=== PATIENT | male | born 1940 | race Caucasian/White ===

== ENCOUNTER 2020-06-30 01:23 | Inpatient (IN) | payer OTHER, SELFPAY ==
[2020-06-30] VITALS (17 sets, daily range): BP systolic 90–134; BP diastolic 61–85; PULSE 73–100; RESP 16–18; TEMP 35.7–36.5; O2SAT 93–100; BMI 16.9
--- NOTE | ~2020-06-30 | XR_ITS ---
XR chest 1V portable DATE: 07/02/2020 22:16 INDICATION: Hypoxia. Bowel obstruction, possible free air TECHNIQUE: Portable AP chest on 07/02/2020 at 2159 hours COMPARISON: 07/02/2020 AP and lateral chest at 1313 hours FINDINGS: Bilateral pulmonary infiltrates, including stable infiltrate in the right lower lung and in creased left mid and lower lung infiltrate since 07/02/2020. Cardiomegaly. Mild pulmonary vascular congestion. Cannot exclude minimal pleural effusions. No pneumothorax. Prominent gaseous distention of the hepatic flexure of the colon. Diffuse osteopenia. IMPRESSION: Stable right lower lung infiltrate and increased infiltrates in the left mid and lower marvel ng since 07/02/2020 Reviewed, dictated and finalized at location A. IMPRESSION: Stable right lower lung infiltrate and increased infiltrates in the left mid and lower lung since 07/02/2020
--- NOTE | ~2020-06-30 | XR_ITS ---
XR abdomen/kub 1V DATE: 07/02/2020 22:16 INDICATION: Possible bowel obstruction TECHNIQUE: 2 supine AP views COMPARISON: 06/30/[address] abdomen pelvis FINDINGS: There is a prominent amount of fecal material in the rectosigmoid area consistent with feca l impaction. There is gaseous distention of multiple small and large bowel segments without apparent abnormal dilatation. No visceromegaly is evident. Diffuse osteopenia. Right lower and left mid and lower lung infiltrates. IMPRESSION: Rectosigmoid fecal impaction Reviewed, dictated and finalized at [facility]. Reviewed, dictated and finalized at location A.
--- NOTE | ~2020-06-30 | CT_ITS ---
EXAMINATION: CT brain wo con EXAM DATE: 07/01/2020 10:36 INDICATION: Altered mental status. TECHNIQUE: Spiral CT of the head was performed without contrast. Axial, coronal and sagittal images were reviewed. The dose-length product (DLP) for this examination was 681.00 mGy-cm. The exposure w as tailored according to patient size, and iterative reconstruction (ASIR) was used as additional dos e reduction technique. There is no prior study for comparison. FINDINGS: There is no acute intraparenchymal hemorrhage. No evidence of intraparenchymal brain mass lesion. No evidence of acute infarction. Please note that initial head CT has limited sensitivity f or small or acute infarctions. There is moderate periventricular and subcortical hypodensity, nonspec ific but probably related to small vessel ischemic disease. There is moderate prominence of the sul ci and ventricles related to cerebral atrophy. There is intracranial carotid arteriosclerosis. The re are no extra-axial collections. There is no mass effect or midline shift. Patient has had bilate ral ocular lens surgery. Soft tissue is unremarkable. The visualized sinuses and mastoid air cells are well aerated. IMPRESSION: 1. No acute intracranial findings. 2. Chronic age related findings. Reviewed, dictated and finalized at location A.
--- NOTE | ~2020-06-30 | CT_ITS ---
EXAMINATION: CT abdomen pelvis wo con DATE: 06/30/2020 02:37 INDICATION: Abdominal pain. TECHNIQUE: Computed tomography (CT) of the abdomen and pelvis was performed without intravenous contr ast. Automated exposure control and iterative reconstruction technique were employed. The dose-length product was 293.01 mGy-cm. COMPARISON: PET/CT 10/16/2018 FINDINGS: The visualized portions of the lung bases demonstrate emphysema and bronchiectasis. There i s mild atelectasis bilaterally. There are small right and trace left pleural effusions. The heart siz e is normal. There are coronary artery calcifications. There is a small pericardial effusion. The tereza er is normal. The gallbladder is distended. The spleen, pancreas, and adrenal glands are normal. Ther e are stones in the kidneys measuring up to 2 mm on the right. A stool ball distends the rectum. Ther e is a large volume of stool in the colon. There is fluid in the esophagus. There is a 4.0 cm fusifor m aneurysm of infrarenal aorta. There are no pathologically enlarged lymph nodes. There is no free in traperitoneal fluid. There is a burst fracture of L1 with retropulsion of bone 8 mm into central spin al canal, likely subacute. There is a chronic compression fracture of T12. There is mild chronic ante rior wedging of multiple lower thoracic vertebral bodies. IMPRESSION: 1. Large volume of stool in the colon with distention of the rectum. 2. Gallbladder distention, which may be secondary to fasting. Correlate with physical exam exclude ac tab cholecystitis. 3. Small right pleural effusion. 4. 4.0 cm fusiform infrarenal aorta. 5. Small pericardial effusion. Reviewed, dictated and finalized at location A. IMPRESSION: 1. Large volume of stool in the colon with distention of the rectum. 2. Gallbladder distention, which may be secondary to fasting. Correlate with ph ysical exam exclude acute cholecystitis. 3. Small right pleural effusion. 4. 4.0 cm fusiform infrarenal aorta. 5. Small pericardial effusion.
--- NOTE | ~2020-06-30 | XR_ITS ---
XR chest 2V DATE: 07/02/2020 13:14 INDICATION: Wet cough TECHNIQUE: AP and lateral views COMPARISON: 10/22/2006 portable AP chest FINDINGS: There are bilateral lung infiltrates and/atelectasis and small pleural effusions. Cardiomegaly. There is mild pulmonary vascular congestion and redistribution, mild prominence of the fissures, suggesting congestive changes. Diffuse osteopenia. IMPRESSION: Cardiomegaly, mild congestive changes Bilateral lower lung infiltrates and/atelectasis. Consider pneumonia, aspiration is old pulmonary donny ma Reviewed, dictated and finalized at location A. IMPRESSION: Cardiomegaly, mild congestive changes Bilateral lower lung infiltrates and/atelectasis. Consider pneumonia, aspiratio n is old pulmonary edema
--- NOTE | ~2020-06-30 | CT_ITS ---
EXAMINATION: CT chest abdomen pelvis w con DATE: 07/03/2020 00:02 INDICATION: Hypoxia. Bowel obstruction, possible free air. TECHNIQUE: Computed tomography (CT) of the chest, abdomen, and pelvis was performed with 100 cc Omnip aque 350 intravenous contrast. Automated exposure control and iterative reconstruction technique were employed. Exam dose: 614.64 mGy-cm total exam DLP. COMPARISON: 06/30/2020 CT abdomen pelvis FINDINGS: CHEST CT: Heart size is normal. No pericardial effusion. Coronary artery calcifications. Thoracic aortic ectasia and calcification.. No hilar or mediastinal mass lesion or lymphadenopathy is noted. There is a nasogastric tube coiled in the upper thoracic esophagus, the distal portion directed cepha lad. Removal and replacement is recommended. There is distention of the esophagus with fluid level in the lower half of the esophagus. Small slidi ng hiatal hernia. Moderately large right pleural effusion with compressive atelectasis right lower lobe. Centrilobular diffuse emphysematous changes are noted. There are bilateral dependent upper lobe patchy infiltrates, left greater than right and extensive li ngular and left lower lobe infiltrates. The findings suggest extensive bilateral pneumonia and/or asp iration, less likely pulmonary edema.. ABDOMEN/PELVIS CT: Distended gallbladder. No gallbladder wall thickening. No bile duct or pancreatic duct dilatation. No hepatic, splenic, pancreatic, adrenal or renal space-occupying mass lesion. 2.5 mm nonobstructing lower pole right renal calculus. Up to 3.6 cm infrarenal abdominal aortic aneurysm. No intraperitoneal or retroperitoneal or pelvic ma ss lesion or adenopathy is evident. There is prominent rectal fecal impaction. There is gaseous distention of much of the colon. There ar e nondilated fluid containing small bowel segments. Can catheter in the urinary bladder. No intraperitoneal free air is evident. Diffuse osteopenia. There is kyphosis scoliosis, degenerative change and multiple fracture deformitie s of the spine, including severe burst fracture deformity at L1 and moderate anterior wedge compressi on fracture deformities of T12 and T8 in particular. IMPRESSION: Prominent emphysema Extensive bilateral pulmonary infiltrates Moderate right pleural effusion 2.5 mm nonobstructing lower pole right renal calculus Up to 3.6 cm infrarenal abdominal aortic aneurysm Prominent rectal fecal impaction Reviewed, dictated and finalized at [facility]. Reviewed, dictated and finalized at location A.
--- NOTE | ~2020-06-30 | XR_ITS ---
XR abdomen NG/feed tube insert DATE: 07/03/2020 00:09 INDICATION: NG tube placement TECHNIQUE: Portable AP view on 07/03/2020 at 0001 hours COMPARISON: None FINDINGS: The NG tube is looped in the upper thoracic esophagus, and extending only as far as the lev el of the superior aspect of the aortic arch and reversing course, the distal portion directed cephal ad. Extensive bilateral pulmonary infiltrates, particularly in the lower lung zones, left greater than ri ght. Bilateral excretion of contrast material without hydronephrosis. Gaseous distention of the colon. Diffuse osteopenia. IMPRESSION: NG tube reverses course in the upper thoracic esophagus, distal portion directed cephalad . Removal and replacement of the NG tube is recommended. Reviewed, dictated and finalized at [facility]. Reviewed, dictated and finalized at location A. IMPRESSION: NG tube reverses course in the upper thoracic esophagus, distal por tion directed cephalad. Removal and replacement of the NG tube is recommended.
--- NOTE | 2020-06-30 02:18 | ECG_ITS ---
Measurements Intervals [place] Rate: 65 P: 69 MN: 124 QRS: 55 QRSD: 96 T: 43 QT: 442 QTc: 461 Interpretive Statements SINUS RHYTHM NONSPECIFIC ST & T-WAVE ABNORMALITY- INFERIOR LEADS BASELINE WANDER- AVL, AVF, V3-V6 BORDERLINE ECG Electronically Signed On 06-30-2020 7:16:14 CDT by Adam Connors D.O.
--- NOTE | 2020-06-30 02:23 | ED.CHESTPAIN ---
HPI - Chest Pain General Chief Complaint: Abdominal Pain Stated Complaint: ABD pain, hx SBO Time Seen by Provider: 06/30/20 02:03 Source: patient Mode of arrival: EMS Limitations: no limitations History of Present Illness HPI narrative: Patient is a 80-year-old male complaining of chest pain, dull, nonradiating accompanied by diffuse abdominal pain that started tonight. Patient states that his chest pain was 6 out of 10, now resolved. Patient also complaining abdominal pain, diffuse, nonradiating, 8 out of 10, currently denies any pain, accompanied by diarrhea also started tonight. Patient denies any shortness of breath, nausea, vomiting, fever or chills. Patient has no complaints at this time, no pain. Related Data Home Medications Medication Instructions Recorded Confirmed acetaminophen-codeine tablet 06/30/20 albuterol sulfate 06/30/20 albuterol sulfate INHALATION 06/30/20 apixaban [Eliquis] mg 06/30/20 apixaban [Eliquis] mg 06/30/20 carbidopa-levodopa tablet 06/30/20 clobetasol TOPICAL 06/30/20 denosumab [Prolia] 60 mg SUBCUT [id number] 06/30/20 escitalopram oxalate mg 06/30/20 fludrocortisone mg 06/30/20 lansoprazole 06/30/20 lansoprazole 06/30/20 tiotropium-olodaterol [Stiolto INHALATION 06/30/20 Respimat] tiotropium-olodaterol [Stiolto INHALATION 06/30/20 06/30/20 Respimat] triamcinolone acetonide [Kenalog] 1 applic TOPICAL BID 06/30/20 Allergies Allergy/AdvReac Type Severity Reaction Status Date / Time No Known Allergies Allergy Unknown Verified 06/30/20 04:00 Review of Systems Review of Systems: All systems reviewed & are unremarkable except as noted in HPI and below Constitutional: Constitutional: Denies body ache(s), Denies chills, Denies excessive sweating, Denies fatigue, Denies fever(s), Denies headache(s), Denies lethargy, Denies malaise, Denies weakness and Denies weight loss Eyes: Eyes: Denies blurry vision, Denies change in vision and Denies loss of vision ENT: Denies dizziness, Denies ear discharge, Denies headache(s), Denies lip swelling, Denies epistaxis, Denies nasal congestion, Denies neck pain, Denies throat swelling and Denies tongue swelling Cardiovascular: Cardiovascular: Denies diaphoresis, Denies rapid heart rate, Denies edema, Denies irregular heart rhythm, Denies lightheadedness, Denies palpitations, Denies dyspnea and Denies dyspnea on exertion Respiratory: Respiratory: Denies chest congestion, Denies cough, Denies hemoptysis, Denies dyspnea and Denies dyspnea on exertion Gastrointestinal: Gastrointestinal: Denies melena, Denies hematochezia, Denies diarrhea, Denies nausea, Denies vomiting and Denies hematemesis Musculoskeletal: Musculoskeletal: Denies abnormal gait, Denies deformity, Denies joint swelling, Denies limited range of motion, Denies neck pain and Denies numbness Neurologic: Denies Abnormal speech present, Denies abnormal gait, Denies confusion, Denies dizziness, Denies headache(s), Denies focal weakness, Denies loss of vision, Denies numbness, Denies Other visual disturbances, Denies Sensory deficit (Neuro) and Denies weakness Psychiatric: Psychiatric: Denies confusion, Denies depression, Denies auditory hallucinations, Denies homicidal ideation and Denies suicidal ideation Endocrine: Endocrine: Denies cold intolerance, Denies excessive sweating, Denies fatigue, Denies heat intolerance and Denies palpitations Hematologic/Lymphatic: Hematologic/Lymphatic: Denies easy bleeding and Denies easy bruising Allergic/Immunologic: Allergic/Immunologic: Denies lip swelling, Denies throat swelling and Denies tongue swelling PMFSH Comments Past medical history: Hypertension Family history: Noncontributory Social history: Former smoker, no EtOH use, lives at home with and daughter Exam Const: General: cooperative, healthy appearing, comfortable, no acute distress, well developed, alert, awake and confusion Orientation/consciousness: oriented to person, orient
[2020-06-30 02:32] LABS: Basophils Percent Auto 0.1 % (0.2-1.2); Eosinophils Percent Auto 0.1 % (0-4.4); Hematocrit 23.5 % (42.0-52.0); Immature Granulocyte Absolute 0.02 K/mm3 (0.00-0.031); Immature Granulocyte Percent A 0.3 % (0-0.5); Lymphocytes Absolute Auto 0.29 K/mm3 (0.9-3.2); Lymphocytes Percent Auto 3.9 % (18.3-44.2); Mean Corpuscular HGB Conc 28.1 g/dl (32-36); Mean Corpuscular Hemoglobin 25.3 pg (26-34); Mean Platelet Volume 9.2 fl (7.4-10.4); Monocytes Absolute Auto 0.3 K/mm3 (0.1-0.6); Monocytes Percent Auto 4.4 % (2.6-8.5); Neutrophils Absolute Auto 6.8 K/mm3 (1.3-6.7); Neutrophils Percent Auto 91.2 % (45.5-73.1); Nucleated Red Blood Cells Perc 0.3 % (0.0-0.2); Platelet Count Result 366 k/mm3 (150-375); Red Blood Count 2.61 M/mm3 (4.6-6.20); Red Cell Distribution Width 20.7 % (11.5-14.5); White Blood Count 7.5 K/mm3 (4.5-10.0)
[2020-06-30 02:44] LABS: Albumin Level 2.3 g/dL (3.5-5.1); Alkaline Phosphatase 66 U/L (38-126); Anion Gap 6 mmol/L (8-16); Aspartate Amino Transferase 18 U/L (17-59); Bilirubin,Total 0.5 mg/dL (0.2-1.3); Blood Urea Nitrogen 24 mg/dL (9-20); Calcium 5.5 mg/dL (8.4-10.2); Carbon Dioxide 17 mmol/L (22-30); Chloride 121 mmol/L (98-107); Estimated Glomerular Filt Rate > 60; Glucose 81 mg/dL (75-110); Potassium 3.5 mmol/L (3.4-5.0); Sodium 144 mmol/L (137-145)
[2020-06-30 02:49] LABS: INR 2.8; Prothrombin Time 30.4 Seconds (11.1-14.7)
[2020-06-30 02:51] LABS: Partial Thromboplastin Time 53.6 SECONDS (22.3-36.8)
[2020-06-30 02:57] LABS: Troponin I < 0.012 ng/mL (0.000-0.034)
[2020-06-30] MEDS: LACTATED RINGERS 1,000 ML 999 ML IV CONT (02:58)
[2020-06-30 03:01] LABS: Hemoglobin 6.6 g/dL (14.0-18.0)
[2020-06-30 03:03] LABS: Lipase 55 U/L (23-300)
[2020-06-30 03:06] LABS: Alanine Aminotransferase < 6 U/L (4-50)
[2020-06-30 03:12] LABS: Lactic Acid Reflex 1.9 mmol/L (0.7-2.1)
[2020-06-30] MEDS: diphenhydrAMINE HCl CAP 25 MG CAPSULE PO (04:53)
[2020-06-30] MEDS: ACETAMINOPHEN 325 MG TABLET 650 MG PO (04:53)
[2020-06-30] MEDS: PANTOPRAZOLE SODIUM IV 40 MG VIAL 80 MG IV PUSH (04:53)
--- NOTE | 2020-06-30 05:15 | ADMGEN ---
This patient, Remi Jefferson, was admitted to IMU Room 202-01. Patient/family oriented to hospital policies and general routines including ID bracelet, bed and alarms, visiting hours, pain management, procedures, bathroom and other care routines, personal items, smoking policy, room service/diet, and visiting hours. Information on how to activate the Rapid Response Team has been discussed. Patient/Family are encouraged to report perceived risks to care and to ask questions if they do not understand what they are told or what they should do.
[2020-06-30 05:21] LABS: Troponin I < 0.012 ng/mL (0.000-0.034)
[2020-06-30] MEDS: LACTATED RINGERS 1,000 ML 90 ML IV CONT ×2 (05:30→20:43)
--- NOTE | 2020-06-30 07:46 | PM.IMHP ---
H&P: HPI History of Present Illness Date/Time: 06/30/20 07:46 Chief Complaint: epigastric pain Narrative: This is a 80-year-old male with past medical history significant for COPD Parkinson's atrial fibrillation rate control and anticoagulated esophageal cancer. Patient came to the emergency room due to epigastric pain patient signals to the epigastric area he was found to have a low hemoglobin and Hemoccult was positive he received 1 unit of packed red blood cells. Patient states that he has been in his usual state of health he denies any hemoptysis hematochezia blood red blood per rectum on on melena he denies any weight loss no shortness of breath no cough no sputum production states that his brought him to the hospital. preliminary workup was significant for a hemoglobin of 6 and a positive hemoccult test. Review of Systems Review of Systems: All systems reviewed & are unremarkable except as noted in HPI and below Constitutional: Constitutional: Denies body ache(s), Denies chills, Denies excessive sweating, Denies fatigue, Denies fever(s), Denies headache(s), Denies lethargy, Denies malaise, Denies weakness and Denies weight loss Eyes: Eyes: Denies blurry vision, Denies change in vision and Denies loss of vision ENT: Denies dizziness, Denies ear discharge, Denies headache(s), Denies lip swelling, Denies epistaxis, Denies nasal congestion, Denies neck pain, Denies throat swelling and Denies tongue swelling Cardiovascular: Cardiovascular: Denies diaphoresis, Denies rapid heart rate, Denies edema, Denies irregular heart rhythm, Denies lightheadedness, Denies palpitations, Denies dyspnea and Denies dyspnea on exertion Respiratory: Respiratory: Denies chest congestion, Denies cough, Denies hemoptysis, Denies dyspnea and Denies dyspnea on exertion Gastrointestinal: Gastrointestinal: Denies melena, Denies hematochezia, Denies diarrhea, Denies nausea, Denies vomiting and Denies hematemesis Musculoskeletal: Musculoskeletal: Denies abnormal gait, Denies deformity, Denies joint swelling, Denies limited range of motion, Denies neck pain and Denies numbness Neurologic: Denies Abnormal speech present, Denies abnormal gait, Denies confusion, Denies dizziness, Denies headache(s), Denies focal weakness, Denies loss of vision, Denies numbness, Denies Other visual disturbances, Denies Sensory deficit (Neuro) and Denies weakness Psychiatric: Psychiatric: Denies confusion, Denies depression, Denies auditory hallucinations, Denies homicidal ideation and Denies suicidal ideation Endocrine: Endocrine: Denies cold intolerance, Denies excessive sweating, Denies fatigue, Denies heat intolerance and Denies palpitations Hematologic/Lymphatic: Hematologic/Lymphatic: Denies easy bleeding and Denies easy bruising Allergic/Immunologic: Allergic/Immunologic: Denies lip swelling, Denies throat swelling and Denies tongue swelling PMFSH Past Medical History Medical History (Updated 06/30/20 @ 11:51 by Shannan Kemp MD) COPD (chronic obstructive pulmonary disease) with emphysema Esophageal cancer Parkinsons Sundowning Family History Family History (Updated 06/30/20 @ 05:51 by Leeanne Butts RN) Sibling Malignant neoplasm of prostate COPD (chronic obstructive pulmonary disease) Emphysema (subcutaneous) (surgical) resulting from a procedure Cerebral hemorrhage Mother Throat cancer Father Heart attack Social History Social History Years smoked: 50 Smoking status: Current every day smoker Tobacco type: pipe and e-cigarettes/vaping Alcohol intake: never Substance use: never Gender identity (if verbalized by the patient): Male Spiritual care concerns: No Meds Home Medications and Allergies Home Medications Medication Instructions Recorded Confirmed Type albuterol sulfate 2 puff INHALATION Q6H PRN 06/30/20 06/30/20 History apixaban [Eliquis] 5 mg PO BID 06/30/20 06/30/20 History carbidopa-levodopa 2.5 tablet PO TI
[2020-06-30] MEDS: CARBIDOPA/LEVODOPA 25/100 MG TABLET 2 TABLET PO ×3 (09:29→18:33)
[2020-06-30] MEDS: CARBIDOPA/LEVODOPA 12.5/50 MG TABLET 1 TABLET PO ×3 (09:29→18:32)
[2020-06-30] MEDS: PANTOPRAZOLE 40 MG TABLET PO ×2 (09:30→18:33)
[2020-06-30] MEDS: ESCITALOPRAM OXALATE 10 MG TABLET PO (09:30)
[2020-06-30 15:35] LABS: Add Urine Microscopic? YES; Appearance Urine Clear (Clear); Bacteria Urine Trace /hpf; Bilirubin Urine 2+ (Negative); Blood Urine Negative (Negative); Color Urine Amber (Yellow); Glucose Urine UA Negative (Negative); Ketones Urine Trace mg/dL (Negative); Leukocyte Esterase Ur Negative LEU/UL (Negative); Mucus Urine Rare /lpf; Nitrate Urine Negative (Negative); Protein Urine 1+ mg/dL (Negative); RBC Urine 0-2 /hpf (0-2); Squamous Epithelial Cell Urine Rare /hpf (Few); WBC Urine 0-3 /hpf
[2020-06-30 15:37] LABS: Specific Grav Ur 1.032 (1.001-1.035)
[2020-06-30] MEDS: ACETAMINOPHEN 500 MG TABLET 1000 MG PO (16:46)
--- NOTE | 2020-06-30 16:58 | WPDGICN ---
Assessment and Plan Assessment and plan (1) Acute GI bleeding: Code(s): K92.2 - Gastrointestinal hemorrhage, unspecified Status: Acute Assessment and Plan: given blood transfusion occult blood in stool positive with worsening anemia egd with colonoscopy tomorrow, daughter says that never had a colonoscopy (in 3 different times tried bowel prep but always had hard stool) (2) Occult blood in stools: Code(s): R19.5 - Other fecal abnormalities Status: Acute Assessment and Plan: egd and colonoscopy (3) Acute on chronic blood loss anemia: Code(s): D62 - Acute posthemorrhagic anemia Status: Acute Assessment and Plan: s/p transfusion ppi iv monitor h/h (4) Chronic anticoagulation: Code(s): Z79.01 - shelter (current) use of anticoagulants Status: Acute Assessment and Plan: hold eliquis for now (5) Parkinsons: Code(s): G20 - Parkinson's disease Status: Inactive (6) Sundowning: Code(s): F05 - Delirium due to known physiological condition Status: Inactive Assessment and Plan: confused, sitter at bedside (7) Fecal impaction: Code(s): K56.41 - Fecal impaction Status: Acute Assessment and Plan: family says that has chronic constipation colonoscopy tomorrow GI Consult Note Consult date/time: 06/30/20 16:58 Reason for consult: FOBT, acute on chronic blood loss anemia HPI: Remi Jefferson is a 80 year old male with history of COPD, Parkinson's, atrial fibrillation on eliquis. Part of history given by daughter that is at bedside because he is confused. She says that about 1 week ago he fell and hit his head, went to ER at [facility], also diagnosed with fecal impaction treated medically and sent home. He came here after generalized weakness and after fell own on his knees using his walker, also had chest pain, dull, nonradiating accompanied by diffuse abdominal pain. ER evaluation showed low hemoglobin 6.5 and Hemoccult was positive, no obvious melena. He received 1 unit of packed red blood cells. CT scan reviewed, showed large volume of stool in the colon with distention of the rectum, gallbladder distention, which may be secondary to fasting. Correlate with physical exam exclude acute cholecystitis. He is confused and sitter at bedside. Review of Systems Constitutional: Constitutional: Reports weakness Eyes: Eyes: Denies blurry vision ENT: Reports Normal hearing present Cardiovascular: Cardiovascular: Reports chest pain Respiratory: Respiratory: Denies cough Gastrointestinal: Gastrointestinal: Reports abdominal pain Genitourinary: Genitourinary: Denies dysuria Musculoskeletal: Musculoskeletal: Denies neck pain Integumentary/Breasts: Skin/Breast: Denies dry skin Neurologic: Comments: falls Psychiatric: Psychiatric: Reports confusion REPLACED BY [facility] Past Medical History Medical History (Updated 06/30/20 @ 17:06 by Abelardo Phillips MD) Acute on chronic blood loss anemia COPD (chronic obstructive pulmonary disease) with emphysema Esophageal cancer Fecal impaction Occult blood in stools Parkinsons Sundowning Family History Family History (Updated 06/30/20 @ 05:51 by Leeanne Butts RN) Sibling Malignant neoplasm of prostate COPD (chronic obstructive pulmonary disease) Emphysema (subcutaneous) (surgical) resulting from a procedure Cerebral hemorrhage Mother Throat cancer Father Heart attack Social History Social History Years smoked: 50 Smoking status: Current every day smoker Tobacco type: pipe and e-cigarettes/vaping Alcohol intake: never Substance use: never Gender identity (if verbalized by the patient): Male Spiritual care concerns: No Meds Home Medications and Allergies Home Medications Medication Instructions Recorded Confirmed Type albuterol sulfate 2 puff INHALATION Q6H PRN 06/30/20 06/30/20 History apixaban [Eliquis] 5 mg PO BID
[2020-06-30] MEDS: BISACODYL 5 MG TABLET EC 20 MG PO (18:32)
[2020-06-30] MEDS: polyethylene glycoL 3350 238 GM BOTTLE PO (18:34)
[2020-07-01] VITALS (13 sets, daily range): BP systolic 136–177; BP diastolic 73–106; PULSE 73–108; RESP 15–24; TEMP 35.8–36.8; O2SAT 90–100
[2020-07-01] MEDS: MAGNESIUM CITRATE 300 ML BTL PO (01:13)
[2020-07-01] MEDS: LACTATED RINGERS 1,000 ML 90 ML IV CONT ×2 (06:29→20:30)
[2020-07-01 08:53] LABS: Hematocrit 27.7 % (42.0-52.0); Hemoglobin 8.6 g/dL (14.0-18.0); Mean Corpuscular Hemoglobin 26.6 pg (26-34); Mean Corpuscular Volume 85.8 fl (80-100); Platelet Count Result 425 k/mm3 (150-375); Red Blood Count 3.23 M/mm3 (4.6-6.20); Red Cell Distribution Width 20.2 % (11.5-14.5); White Blood Count 6.5 K/mm3 (4.5-10.0)
[2020-07-01 09:00] LABS: Alkaline Phosphatase 94 U/L (38-126); Anion Gap 2 mmol/L (8-16); Aspartate Amino Transferase 30 U/L (17-59); Bilirubin,Total 0.4 mg/dL (0.2-1.3); Blood Urea Nitrogen 21 mg/dL (9-20); Calcium 7.4 mg/dL (8.4-10.2); Carbon Dioxide 27 mmol/L (22-30); Chloride 112 mmol/L (98-107); Estimated CRCL calculation 54 ml/min; Estimated Glomerular Filt Rate > 60; Glucose 84 mg/dL (75-110); Potassium 3.7 mmol/L (3.4-5.0); Sodium 141 mmol/L (137-145)
[2020-07-01 10:10] LABS: Alanine Aminotransferase < 6 U/L (4-50)
--- NOTE | 2020-07-01 11:01 | PC.NURSE ---
To GI Lab per stretcher. IV saline locked
[2020-07-01] MEDS: LACTATED RINGERS 1,000 ML 150 ML IV CONT (11:18)
--- NOTE | 2020-07-01 11:53 | WPDANESEPPF ---
Anes - Initial Pre Proc Eval Procedure: Operation Date: 07/01/20 12:15 Proposed Procedures p Esophagogastroduodenoscopy - Abelardo Phillips MD s Sigmoidoscopy - Abelardo Phillips MD Date/Time: 07/01/20 11:53 Surgeon: Kira Mittal MD Pre Op Diagnosis: GI Bleed, Anemia, Chest Pain Patient Data Age: 80 Gender: M Height: 5 ft 8 in Weight: 50.7 kg Last Vital Signs Temp 97.8 F 07/01/20 11:11 Pulse 85 07/01/20 11:11 Resp 18 07/01/20 11:11 BP 161/96 H 07/01/20 11:11 Pulse Ox 97 07/01/20 11:11 Allergies Allergy/AdvReac Type Severity Reaction Status Date / Time No Known Allergies Allergy Unknown Verified 07/01/20 11:06 Home Medications Medication Instructions Recorded Confirmed Type albuterol sulfate 2 puff INHALATION Q6H PRN 06/30/20 06/30/20 History apixaban [Eliquis] 5 mg PO BID 06/30/20 06/30/20 History carbidopa-levodopa 2.5 tablet PO TID 06/30/20 06/30/20 History clobetasol 1 applic TOPICAL DAILY PRN 06/30/20 06/30/20 History denosumab [Prolia] 60 mg SUBCUT [id number] 06/30/20 06/30/20 History escitalopram oxalate 10 mg PO DAILY 06/30/20 06/30/20 History lansoprazole 30 mg PO BID 06/30/20 06/30/20 History tiotropium-olodaterol [Stiolto 2 puff INHALATION DAILY 06/30/20 06/30/20 History Respimat] Laboratory Tests 06/30/20 06/30/20 07/01/20 04:43 15:12 08:37 WBC 6.5 K/mm3 K/mm3 (4.5-10.0) RBC 3.23 M/mm3 L M/mm3 (4.6-6.20) Hgb 8.6 g/dL L g/dL (14.0-18.0) Hct 27.7 % L % (42.0-52.0) MCV 85.8 fl fl (80-100) MCH 26.6 pg D pg (26-34) MCHC 31.0 g/dl L g/dl (32-36) RDW 20.2 % H % (11.5-14.5) Plt Count 425 k/mm3 H k/mm3 (150-375) MPV 9.0 fl fl (7.4-10.4) Sodium Potassium Chloride Carbon Dioxide Anion Gap BUN Creatinine Estim Creat Clear Calc Estimated GFR Glucose Calcium Total Bilirubin AST ALT Alkaline Phosphatase Total Protein Albumin Urine Color Leeann (Yellow) Urine Appearance Clear (Clear) Urine pH 5.0 (5.0-9.0) Ur Specific [place] 1.032 (1.001-1.035) Urine Protein 1+ mg/dL H mg/dL (Negative) Urine Glucose (UA) Negative mg/dL mg/dL (Negative) Urine Ketones Trace mg/dL mg/dL (Negative) Ur Blood (Man) Negative (Negative) Urine Nitrate Negative (Negative) Urine Bilirubin 2+ H (Negative) Urine Urobilinogen 4.0 mg/dL H mg/dL (<2.0) Leukocyte Esterase Rfl Negative ROLDAN/UL ROLDAN/UL (Negative) Urine RBC 0-2 /hpf /hpf (0-2) Urine WBC 0-3 /hpf /hpf Ur Squamous Epith Cells Rare /hpf /hpf (Few) Urine Bacteria Trace /hpf /hpf Urine Mucus Rare /lpf /lpf Crossmatch See Detail 07/01/20 08:37 WBC RBC Hgb Hct MCV MCH MCHC RDW Plt Count MPV Sodium 141 mmol/L mmol/L (137-145) Potassium 3.7 mmol/L mmol/L (3.4-5.0) Chloride 112 mmol/L H mmol/L (98-107) Carbon Dioxide 27 mmol/L mmol/L (22-30) Anion Gap 2 mmol/L L mmol/L (8-16) BUN 21 mg/dL H mg/dL (9-20) Creatinine 0.70 mg/dL mg/dL (0.7-1.3) Estim Creat Clear Calc 54 ml/min ml/min Estimated GFR > 60 (59 - ) Glucose 84 mg/dL mg/dL (75-110) Calcium 7.4 mg/dL L mg/dL (8.4-10.2) Total Bilirubin 0.4 mg/dL mg/dL (0.2-1.3) AST 30 U/L U/L (17-59) ALT < 6 U/L U/L (4-50) Alkaline Phosphatase 94 U/L U/L (38-126) Total Protein 6.0 g/dL L g/dL (6.3-8.2) Albumin 3.0 g/dL L g/dL (3.5-5.1) Urine Color Urine Appearance Urine p
--- NOTE | 2020-07-01 12:10 | PC.NURSE ---
Report given to YEFRI Funes @ 1205. Pt currently in GI Lab. GI Lab notified of transfer and will call med/surg with report upon completion. Belonging moved to room 304-2
--- NOTE | 2020-07-01 13:45 | PC.NURSE ---
This patient, Remi Jefferson, was received from [imu ] on 07/01/20 at 1340. Patient/family oriented to unit policies and routines
--- NOTE | 2020-07-01 13:56 | PCDIET ---
Nutrition Follow-Up Complete: Nutrition Diagnosis: Inadequate oral intake related to GI bleeding as evidenced by NPO status. Nutrition Goal: Patient to meet estimated nutritional needs. Goal not met. Patient has been on clear liquid/NPO diets since last review. When medically appropriate, recommend advancing to soft, low fat diet for optimal tolerance. Recommend nutrition support if unable to advance diet over the weekend. Clinimix E 07/16 at goal of 90mL/hr with 250mL 20% lipids will provide 2034kcal and 108g protein per day. Would start rate around 30mL/hr and advance by 30mL/hr daily toward goal with close monitoring of electrolytes and replacing, as needed. Would discontinue IV fluids as PN advances. Last recorded weight is 50.7 kg which is stable with admission. Bowel Motility: BM x 3 today. Labs Reviewed: Hgb (8.6), Hct (27.7), Cl (112), Alb (3.0), Marley Ca (8.2) Meds Noted: LR at 90mL/hr, Sinemet, Prolia, Protonix, Miralax Additional Notes: No documented skin breakdown. Noted endoscopy results - sigmoiditis and diverticulitis. Will continue to monitor with same goal. Nutrition Monitoring and Evaluation: Follow up every 3 days.
[2020-07-01] MEDS: CARBIDOPA/LEVODOPA 12.5/50 MG TABLET 1 TABLET PO ×2 (14:20→16:34)
[2020-07-01] MEDS: CARBIDOPA/LEVODOPA 25/100 MG TABLET 2 TABLET PO ×2 (14:20→16:33)
--- NOTE | 2020-07-01 14:55 | PM.IMPN ---
Progress Note: A&P Assessment and Plan (1) Acute GI bleeding: Code(s): K92.2 - Gastrointestinal hemorrhage, unspecified Status: Acute Assessment and Plan: holding oral anticoagulation awaiting GI recommendations supportive care continue to monitor status post 1 unit of packed red blood cells transfusion PATIENT HAD COLONOSCOPY RESULTS NOTED BOWEL REGIMEN (2) Abdominal pain: Qualifiers: Abdominal location: generalized Qualified Code(s): R10.84 - Generalized abdominal pain Code(s): R10.9 - Unspecified abdominal pain Status: Acute Assessment and Plan: still complaining of abdominal pain continue PPI (3) Chronic anticoagulation: Code(s): Z79.01 - halfway (current) use of anticoagulants Status: Acute Assessment and Plan: holding due to GI bleed (4) Chest pain: Qualifiers: Chest pain type: unspecified Qualified Code(s): R07.9 - Chest pain, unspecified Code(s): R07.9 - Chest pain, unspecified Status: Acute Assessment and Plan: epigastric area continue to monitor (5) Anemia: Qualifiers: Anemia type: unspecified type Qualified Code(s): D64.9 - Anemia, unspecified Code(s): D64.9 - Anemia, unspecified Status: Acute Assessment and Plan: likely secondary to GI bleed will continue to monitor transfuse as needed STABLE Subjective Date/time seen: 07/01/20 14:55 I AM FINE Review of Systems Review of Systems: All systems reviewed & are unremarkable except as noted in HPI and below Constitutional: Constitutional: Denies body ache(s), Denies chills, Denies excessive sweating, Denies fatigue, Denies fever(s), Denies headache(s), Denies lethargy, Denies malaise, Denies weakness and Denies weight loss Eyes: Eyes: Denies blurry vision, Denies change in vision and Denies loss of vision ENT: Denies dizziness, Denies ear discharge, Denies headache(s), Denies lip swelling, Denies epistaxis, Denies nasal congestion, Denies neck pain, Denies throat swelling and Denies tongue swelling Cardiovascular: Cardiovascular: Denies diaphoresis, Denies rapid heart rate, Denies edema, Denies irregular heart rhythm, Denies lightheadedness, Denies palpitations, Denies dyspnea and Denies dyspnea on exertion Respiratory: Respiratory: Denies chest congestion, Denies cough, Denies hemoptysis, Denies dyspnea and Denies dyspnea on exertion Gastrointestinal: Gastrointestinal: Denies melena, Denies hematochezia, Denies diarrhea, Denies nausea, Denies vomiting and Denies hematemesis Musculoskeletal: Musculoskeletal: Denies abnormal gait, Denies deformity, Denies joint swelling, Denies limited range of motion, Denies neck pain and Denies numbness Neurologic: Denies Abnormal speech present, Denies abnormal gait, Denies confusion, Denies dizziness, Denies headache(s), Denies focal weakness, Denies loss of vision, Denies numbness, Denies Other visual disturbances, Denies Sensory deficit (Neuro) and Denies weakness Psychiatric: Psychiatric: Denies confusion, Denies depression, Denies auditory hallucinations, Denies homicidal ideation and Denies suicidal ideation Endocrine: Endocrine: Denies cold intolerance, Denies excessive sweating, Denies fatigue, Denies heat intolerance and Denies palpitations Hematologic/Lymphatic: Hematologic/Lymphatic: Denies easy bleeding and Denies easy bruising Allergic/Immunologic: Allergic/Immunologic: Denies lip swelling, Denies throat swelling and Denies tongue swelling Exam Narrative: Exam Narrative: PATIENT IS LAYING IN Const: General: comfortable, no acute distress, well developed, alert, awake and confusion Nutritional Appearance: thin Orientation/consciousness: oriented to person and confusion Limitations: no limitations Other: Frail HENMT: Head: normal to inspection, normocephalic and atraumatic Ears: hearing grossly normal bilaterally, TM normal on the right and TM no
[2020-07-01] MEDS: PANTOPRAZOLE 40 MG TABLET PO (16:34)
[2020-07-02] VITALS (8 sets, daily range): BP systolic 101–163; BP diastolic 53–87; PULSE 84–108; RESP 16–20; TEMP 36.4–37.4; O2SAT 57–100
--- NOTE | 2020-07-02 00:11 | PM.EVENT ---
Event Note Event Note Event Note: Nursing staff came to tell me the patient at it adamant that he is going to leave the hospital. He is only alert orient x1. There is not a sitter available to sit with the patient. One time order for Seroquel 12.5 mg provided. Encouraged nursing staff to redirect the patient. The patient had a CT scan of the head on 07/01/2020 due to altered mental status which demonstrated no acute intercranial process.
[2020-07-02] MEDS: QUEtiapine FUMARATE 12.5 MG TABLET PO (00:18)
[2020-07-02] MEDS: LACTATED RINGERS 1,000 ML 90 ML IV CONT (07:21)
[2020-07-02] MEDS: ESCITALOPRAM OXALATE 10 MG TABLET PO (08:38)
[2020-07-02] MEDS: CARBIDOPA/LEVODOPA 25/100 MG TABLET 2 TABLET PO ×3 (08:38→16:34)
[2020-07-02] MEDS: polyethylene glycoL 3350 17 GM POWD.PACK PO (08:38)
[2020-07-02] MEDS: CARBIDOPA/LEVODOPA 12.5/50 MG TABLET 1 TABLET PO ×3 (08:38→16:34)
[2020-07-02] MEDS: PANTOPRAZOLE 40 MG TABLET PO ×2 (08:38→16:34)
--- NOTE | 2020-07-02 13:36 | PM.IMPN ---
Progress Note: A&P Assessment and Plan (1) Acute GI bleeding: Code(s): K92.2 - Gastrointestinal hemorrhage, unspecified Status: Acute Assessment and Plan: holding oral anticoagulation awaiting GI recommendations supportive care continue to monitor status post 1 unit of packed red blood cells transfusion PATIENT HAD COLONOSCOPY RESULTS NOTED BOWEL REGIMEN STABLE (2) Abdominal pain: Qualifiers: Abdominal location: generalized Qualified Code(s): R10.84 - Generalized abdominal pain Code(s): R10.9 - Unspecified abdominal pain Status: Acute Assessment and Plan: continue PPI NO ABDOMINAL PAIN TODAY (3) Chronic anticoagulation: Code(s): Z79.01 - longterm (current) use of anticoagulants Status: Acute Assessment and Plan: holding due to GI bleed (4) Chest pain: Qualifiers: Chest pain type: unspecified Qualified Code(s): R07.9 - Chest pain, unspecified Code(s): R07.9 - Chest pain, unspecified Status: Acute Assessment and Plan: epigastric area continue to monitor PATIENT DENIES PAIN TODAY (5) Anemia: Qualifiers: Anemia type: unspecified type Qualified Code(s): D64.9 - Anemia, unspecified Code(s): D64.9 - Anemia, unspecified Status: Acute Assessment and Plan: likely secondary to GI bleed will continue to monitor transfuse as needed STABLE Subjective Date/time seen: 07/02/20 13:36 I'M FINE Review of Systems Review of Systems: All systems reviewed & are unremarkable except as noted in HPI and below Constitutional: Constitutional: Denies body ache(s), Denies chills, Denies excessive sweating, Denies fatigue, Denies fever(s), Denies headache(s), Denies lethargy, Denies malaise, Denies weakness and Denies weight loss Eyes: Eyes: Denies blurry vision, Denies change in vision and Denies loss of vision ENT: Denies dizziness, Denies ear discharge, Denies headache(s), Denies lip swelling, Denies epistaxis, Denies nasal congestion, Denies neck pain, Denies throat swelling and Denies tongue swelling Cardiovascular: Cardiovascular: Denies diaphoresis, Denies rapid heart rate, Denies edema, Denies irregular heart rhythm, Denies lightheadedness, Denies palpitations, Denies dyspnea and Denies dyspnea on exertion Respiratory: Respiratory: Denies chest congestion, Denies cough, Denies hemoptysis, Denies dyspnea and Denies dyspnea on exertion Gastrointestinal: Gastrointestinal: Denies melena, Denies hematochezia, Denies diarrhea, Denies nausea, Denies vomiting and Denies hematemesis Musculoskeletal: Musculoskeletal: Denies abnormal gait, Denies deformity, Denies joint swelling, Denies limited range of motion, Denies neck pain and Denies numbness Neurologic: Denies Abnormal speech present, Denies abnormal gait, Reports confusion, Denies dizziness, Denies headache(s), Denies focal weakness, Denies loss of vision, Denies numbness, Denies Other visual disturbances, Denies Sensory deficit (Neuro) and Denies weakness Psychiatric: Psychiatric: Reports confusion, Denies depression, Denies auditory hallucinations, Denies homicidal ideation and Denies suicidal ideation Endocrine: Endocrine: Denies cold intolerance, Denies excessive sweating, Denies fatigue, Denies heat intolerance and Denies palpitations Hematologic/Lymphatic: Hematologic/Lymphatic: Denies easy bleeding and Denies easy bruising Allergic/Immunologic: Allergic/Immunologic: Denies lip swelling, Denies throat swelling and Denies tongue swelling Exam Narrative: Exam Narrative: PATIENT IS LAYING IN Const: General: comfortable, no acute distress, well developed, alert, awake and confusion Nutritional Appearance: thin Orientation/consciousness: oriented to person and confusion Limitations: no limitations Other: Frail HENMT: Head: normal to inspection, normocephalic and atraumatic Ears: hearing grossly normal bilaterally, TM
[2020-07-02 13:57] LABS: Add Urine Microscopic? YES; Appearance Urine Cloudy (Clear); Bacteria Urine Trace /hpf; Bilirubin Urine Negative (Negative); Blood Urine Negative (Negative); Color Urine Amber (Yellow); Glucose Urine UA Negative (Negative); Ketones Urine 1+ mg/dL (Negative); Leukocyte Esterase Ur Negative LEU/UL (Negative); Mucus Urine Heavy /lpf; Nitrate Urine Negative (Negative); Protein Urine 1+ mg/dL (Negative); Specific Grav Ur 1.024 (1.001-1.035); Squamous Epithelial Cell Urine Rare /hpf (Few); WBC Urine 0-3 /hpf
[2020-07-02 14:04] LABS: Basophils Percent Auto 0.3 % (0.2-1.2); Eosinophils Percent Auto 0.6 % (0-4.4); Hematocrit 30.3 % (42.0-52.0); Hemoglobin 9.2 g/dL (14.0-18.0); Immature Granulocyte Absolute 0.05 K/mm3 (0.00-0.031); Immature Granulocyte Percent A 0.7 % (0-0.5); Lymphocytes Absolute Auto 0.74 K/mm3 (0.9-3.2); Lymphocytes Percent Auto 10.7 % (18.3-44.2); Mean Corpuscular HGB Conc 30.4 g/dl (32-36); Mean Corpuscular Hemoglobin 26.4 pg (26-34); Mean Corpuscular Volume 86.8 fl (80-100); Mean Platelet Volume 9.3 fl (7.4-10.4); Monocytes Absolute Auto 0.8 K/mm3 (0.1-0.6); Monocytes Percent Auto 10.8 % (2.6-8.5); Neutrophils Absolute Auto 5.3 K/mm3 (1.3-6.7); Neutrophils Percent Auto 76.9 % (45.5-73.1); Platelet Count Result 506 k/mm3 (150-375); Red Blood Count 3.49 M/mm3 (4.6-6.20); Red Cell Distribution Width 21.1 % (11.5-14.5); White Blood Count 6.9 K/mm3 (4.5-10.0)
[2020-07-02 14:14] LABS: Anion Gap 5 mmol/L (8-16); Blood Urea Nitrogen 17 mg/dL (9-20); Carbon Dioxide 27 mmol/L (22-30); Chloride 108 mmol/L (98-107); Estimated CRCL calculation 42 ml/min; Estimated Glomerular Filt Rate > 60; Glucose 151 mg/dL (75-110); Potassium 3.7 mmol/L (3.4-5.0); Sodium 140 mmol/L (137-145)
[2020-07-02] MEDS: QUEtiapine FUMARATE 25 MG TABLET PO (20:37)
[2020-07-02 21:38] LABS: Glucose Point of Care 112 (65-105)
--- NOTE | 2020-07-02 21:41 | ECG_ITS ---
Measurements Intervals [place] Rate: 107 P: 34 MI: 117 QRS: 8 QRSD: 93 T: 11 QT: 335 QTc: 448 Interpretive Statements SINUS TACHYCARDIA WITH SHORT MI INTERVAL NONSPECIFIC T-WAVE ABNORMALITY- DIFFUSE LEADS BASELINE ARTIFACT- I, II, III, AVR, AVL, AVF ABNORMAL ECG Electronically Signed On 07-03-2020 7:22:53 CDT by Adam Connors D.O.
[2020-07-02 21:52] LABS: Alveolar/Arterial O2 Gradient 585.5 mmHg; Carboxyhemoglobin 0.3 % THb (0-2.0); Fractional Inspired Oxygen 100 %; Methemoglobin ABG 0.3 %THb (0-1.5); Oxygen Content ABG 12.7 %vol (16.0-22.0); Oxygen Saturation ABG 97.2 % (95.0-100.0); Oxyhemoglobin 95.7 % THb (90.0-100.0); PCO2 ABG 36.7 mmHg (35.0-45.0); PO2 ABG 90.8 mmHg (80.0-100.0); PO2 FiO2 Ratio Arterial Blood 0.91 %; Reduced Hemoglobin 3.7 %THb (0-5.0); Total Hemoglobin 9.3 g/dL (12.0-18.0); pH ABG 7.434 (7.350-7.450)
[2020-07-02 21:54] LABS: Device NON-REBREATHER MASK; Modified Allen's Test Pass; Site Drawn RIGHT RADIAL
[2020-07-02 22:11] LABS: Basophils Percent Auto 0.2 % (0.2-1.2); Hematocrit 27.9 % (42.0-52.0); Hemoglobin 8.4 g/dL (14.0-18.0); Immature Granulocyte Absolute 0.03 K/mm3 (0.00-0.031); Immature Granulocyte Percent A 0.4 % (0-0.5); Lymphocytes Absolute Auto 0.15 K/mm3 (0.9-3.2); Lymphocytes Percent Auto 1.8 % (18.3-44.2); Mean Corpuscular HGB Conc 30.1 g/dl (32-36); Mean Corpuscular Volume 86.4 fl (80-100); Mean Platelet Volume 8.8 fl (7.4-10.4); Monocytes Absolute Auto 0.9 K/mm3 (0.1-0.6); Monocytes Percent Auto 10.2 % (2.6-8.5); Neutrophils Absolute Auto 7.4 K/mm3 (1.3-6.7); Neutrophils Percent Auto 87.4 % (45.5-73.1); Platelet Count Result 427 k/mm3 (150-375); Red Blood Count 3.23 M/mm3 (4.6-6.20); Red Cell Distribution Width 20.7 % (11.5-14.5); White Blood Count 8.5 K/mm3 (4.5-10.0)
[2020-07-02 22:20] LABS: Alanine Aminotransferase 7 U/L (4-50); Alkaline Phosphatase 93 U/L (38-126); Anion Gap 4 mmol/L (8-16); Aspartate Amino Transferase 34 U/L (17-59); Bilirubin,Total 0.5 mg/dL (0.2-1.3); Blood Urea Nitrogen 20 mg/dL (9-20); Carbon Dioxide 27 mmol/L (22-30); Chloride 109 mmol/L (98-107); Estimated CRCL calculation 34 ml/min; Estimated Glomerular Filt Rate > 60; Glucose 91 mg/dL (75-110); Potassium 3.6 mmol/L (3.4-5.0); Sodium 140 mmol/L (137-145)
[2020-07-02 22:21] LABS: Lactic Acid Reflex 2.2 mmol/L (0.7-2.1)
--- NOTE | 2020-07-02 22:30 | PC.NURSE ---
Addendum entered by Angelia Alexander RN 07/03/20 03:49: Admitted on 07-02-20 @ 5489. Original Note: This patient, Remi Jefferson, was received from [3rd med-surg, room 304] on 07/02/20 at 220. Patient/family oriented to unit policies and routines
[2020-07-02] MEDS: SODIUM CHLORIDE 0.9% IV 1,000 ML 999 ML IV CONT (22:58)
--- NOTE | 2020-07-02 23:00 | PC.NURSE ---
This patient, Remi Jefferson, was transferred to ICU on 07/02/20 at 2200. Personal belongings sent with patient. Report given to Christy ASIF. Appropriate documentation sent with patient.
--- NOTE | 2020-07-02 23:04 | PM.CCN ---
Critical Care Event Note Summary Code activated: No Narrative: At approximately 9:30 p.m. a rapid response was called when the [employer] L[employer] TECHNICIAN found the patient with oxygen saturations in the 60s. The patient was admitted for GI bleed on the . He underwent EGD and colonoscopy on the . EGD demonstrated unspecified esophagitis, hiatal hernia and gastritis. His colonoscopy demonstrated localize sigmoiditis and diverticulosis without perforation or abscess. Shortly after admission to the hospital the patient developed metabolic encephalopathy, delirium. He had a CT of the head 07/01/2020 that demonstrated no acute process. The patient has continued to have liquid stools since his colonoscopy. He was incontinent of stools when he arrived to the ER as well. The patient had previously been treated for fecal impaction a week prior to admission at our facility. The patient developed a wet sounding cough on the morning of the and had a x-ray performed which on radiologic interpretation demonstrated cardiomegaly, mild congestive changes, bilateral lower lung infiltrates and/or atelectasis consider pneumonia, aspiration versus pulmonary edema. However the patient remained on room air until the time of the rapid response. Nursing staff initially tried the patient patient on nasal cannula but his oxygen saturations only improved to the 80s with high-flow nasal cannula. He was subsequently placed on a non-rebreather. When I arrived at the patient's bedside he was satting 92% on non-rebreather. He was tachycardic, minimally responsive, with normal respiratory rate with accessory muscle use, his abdomen was distended but did not seem to be tender. He was incontinent of urine. Stat ABG was obtained which demonstrated PO2 of 90% on non-rebreather. Stat chest x-ray was obtained which demonstrated worsening bilateral infiltrates with dilated loops of bowel. Stat KUB was obtained which demonstrated dilated loops of bowel with small amount a lucency in the left upper abdomen which I suspect is due to a bowel loop but cannot rule out free air. Stat EKG was performed and reviewed demonstrated sinus tachycardia. At the time of my evaluation the patient was initially tachycardic but did a couple of times during evaluation dropped his heart rate down into the 50s. Stat blood cultures, lactic acid, CBC and CMP or ordered. Patient's CBC was stable. His electrolyte panel was stable. He had lactic acidosis. Due to his clinical condition I made the decision transfer the patient to the ICU. The patient's family member told nursing staff that the patient had been having difficulty swallowing when eating today when they were visiting. To family members wanted us to ask the patient for consent for procedures. The family does not believe that it is the same patient that they visited with today. However the patient was equally confused for staff last night. After head already ordered Covid testing the patient's family member reported to nursing staff that the patient had received both Covid vaccines already. Assessment and plan: 1. Acute hypoxic respiratory failure due to sepsis and associated pneumonia: The patient's pneumonia is likely secondary to aspiration given his encephalopathy. He has been placed on Unasyn and vancomycin for coverage of suspected aspiration pneumonia. Will also check patient for COVID-[address] patient on isolation (after COVID testing had already been performed family reported that patient had already received both Covid vaccines). Blood cultures have been obtained. The patient remains on a non-rebreather. The patient's family was contacted and the daughter states that the patient is supposed to be a DNR. A cheetah was performed and demonstrated the patient was fluid responsive with 32% change. 1 L normal saline bolus has been ordered to be followed by normal saline at 150 mL an hour. Reflex lactic acid has been ordered. Can catheter has been placed for m
[2020-07-03] VITALS (13 sets, daily range): BP systolic 126–156; BP diastolic 83–94; PULSE 73–108; RESP 12–22; TEMP 36.1–37.2; O2SAT 93–100
[2020-07-03] MEDS: SODIUM CHLORIDE 0.9% IV 1,000 ML 150 ML IV CONT ×2 (00:40→05:43)
[2020-07-03] MEDS: AMPICILLIN SULB 3 GM/NS 100 ML 3 GM/100 ML VIAL IVPB ×4 (00:42→21:24)
--- NOTE | 2020-07-03 01:05 | ADMGEN ---
This patient, Remi Jefferson, was admitted to Intensive Care Unit-5 at 222407-02-2020. Patient/family oriented to hospital policies and general routines including ID bracelet, bed and alarms, visiting hours, pain management, procedures, bathroom and other care routines, personal items, smoking policy, room service/diet, and visiting hours. Information on how to activate the Rapid Response Team has been discussed. Patient/Family are encouraged to report perceived risks to care and to ask questions if they do not understand what they are told or what they should do.
[2020-07-03 01:09] LABS: Reflex Lactic Acid Yes or No Add Lactic
[2020-07-03 01:55] LABS: Glucose Point of Care 108 (65-105)
[2020-07-03 02:33] LABS: Lactic Acid 1.4 mmol/L (0.7-2.1)
--- NOTE | 2020-07-03 02:44 | PC.NURSE ---
This patient was admitted to ICU room 5 at 222407-02-2020 from room 304. Report was given at bedside by YEFRI Alegria.
--- NOTE | 2020-07-03 09:39 | PCPTNOTE ---
per nurse, pt is stable to receive therapy services despite room change to ICU. No hold order placed. COVID results pending.
--- NOTE | 2020-07-03 10:31 | WPDCNINT ---
Assessment and Plan Assessment and plan (1) Hypoxia: Code(s): R09.02 - Hypoxemia Status: Acute Assessment and Plan: Patient presented with hypoxia, decreased O2 sats on the medical floor into the 60s. Patient was transferred to the ICU for further management -currently on 2 L nasal cannula (2) Acute GI bleeding: Code(s): K92.2 - Gastrointestinal hemorrhage, unspecified Status: Acute Assessment and Plan: Acute GI bleed related unspecified esophagitis with minimal oozing, gastritis. -hemoglobin stable at this time -will continue to monitor (3) Anemia: Qualifiers: Anemia type: unspecified type Qualified Code(s): D64.9 - Anemia, unspecified Code(s): D64.9 - Anemia, unspecified Status: Acute Assessment and Plan: Due to acute ulcer bleed -status post 1 unit of packed RBCs prior EGD and colonoscopy, -hemoglobin stable, will transfuse if less than 7.0 (4) Fecal impaction: Code(s): K56.41 - Fecal impaction Status: Acute Assessment and Plan: Fecal impaction was not noted on the colonoscopy done on 07/01, CT scan of the abdomen and pelvis did show impaction of stool. (5) DVT prophylaxis: Code(s): Z29.9 - Encounter for prophylactic measures, unspecified Status: Acute Assessment and Plan: Heparin subcu Additional Plan Discussed with patient updated with his condition and plan of care. Code status: Do not resuscitate Critical care time spent: 42 minutes This dictation may have been done utilizing a voice recognition system. Attempts have been made to correct errors. However, there may be uncorrected grammatical, spelling, and recognition errors present. Due to a high probability of clinically significant, life threatening deterioration, the patient required my highest level of preparedness to intervene emergently and I personally spent this critical care time directly and personally managing the patient. This critical care time included obtaining a history; examining the patient; pulse oximetry; ordering and review of studies; arranging urgent treatment with development of a management plan; evaluation of patient's response to treatment; frequent reassessment; and discussions with other providers. It was exclusive of separately billable procedures and treating other patients and teaching time. Please see Assessment and Plan section and the rest of the note for further information on patient assessment and treatment Commodity [employer]er Consult Note Consult date: 07/03/20 Time Seen: 07:04 Reason for consult: Initially admitted to the medical floor for anemia, abdominal pain. Rapid response on 07/02/2020 at night for hypoxia, patient was transferred to the ICU HPI: Remi Jefferson is a 80 year old male with past medical history of chronic anemia, COPD with emphysema, esophageal cancer, fecal impaction,, atrial fibrillation on Eliquis, history of small-bowel obstruction, Parkinson's disease presented to the ER on 06/30/2020 with complains of abdominal pain. Patient complained of dull, diffuse abdominal pain 8/10 intensity. At the time of admission he denied any shortness of breath, nausea, vomiting or fevers and chills. Patient was found to have low hemoglobin off 6.5 on admission and transfuse 1 unit of packed RBCs. Patient was also Hemoccult-positive in the ER. Patient also complained of generalized weakness and uses a walker at home. CT scan of the abdomen and pelvis showed large volume of stool in the colon with distention of the rectum, gallbladder distension which is secondary to fasting. CT of the head on 07/01/2020 showed no acute process. -07/01/2020: Endoscopy showed unspecified esophagitis with minimal oozing, hiatal hernia, gastritis -07/01/2020: Colonoscopy showed sigmoiditis, diverticulosis without perforation or abscess, without bleeding On 07/02/2020 night patient was found to be hypoxic. CT of the chest, abdomen, pelvis was don
--- NOTE | 2020-07-03 10:46 | PCSTNOTE ---
Attempted BSS on this date. Pt. not appropriate at this time second to decreased level of alertness. Spoke with nursing. Will re-attempt on 07/04/20.
--- NOTE | 2020-07-03 11:14 | PM.IMPN ---
Progress Note: A&P Assessment and Plan (1) Acute respiratory failure with hypoxemia: Code(s): J96.01 - Acute respiratory failure with hypoxia Status: Acute Assessment and Plan: Overnight events noted Patient on supplemental oxygen (2) Aspiration pneumonia: Code(s): J69.0 - Pneumonitis due to inhalation of food and vomit Status: Acute Assessment and Plan: Started on Unasyn Await cultures Aspiration precautions Speech therapy evaluation for dysphagia (3) Acute GI bleeding: Code(s): K92.2 - Gastrointestinal hemorrhage, unspecified Status: Acute Assessment and Plan: holding oral anticoagulation awaiting GI recommendations supportive care continue to monitor status post 1 unit of packed red blood cells transfusion PATIENT HAD COLONOSCOPY RESULTS NOTED BOWEL REGIMEN STABLE (4) Abdominal pain: Qualifiers: Abdominal location: generalized Qualified Code(s): R10.84 - Generalized abdominal pain Code(s): R10.9 - Unspecified abdominal pain Status: Acute Assessment and Plan: continue PPI NO ABDOMINAL PAIN TODAY (5) 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 Status: Acute Assessment and Plan: holding due to GI bleed (6) Chest pain: Qualifiers: Chest pain type: unspecified Qualified Code(s): R07.9 - Chest pain, unspecified Code(s): R07.9 - Chest pain, unspecified Status: Acute Assessment and Plan: epigastric area continue to monitor PATIENT DENIES PAIN TODAY (7) Anemia: Qualifiers: Anemia type: unspecified type Qualified Code(s): D64.9 - Anemia, unspecified Code(s): D64.9 - Anemia, unspecified Status: Acute Assessment and Plan: likely secondary to GI bleed will continue to monitor transfuse as needed STABLE Subjective Date/time seen: 07/03/20 11:14 Patient was asleep at the time of my visit Review of Systems Review of Systems: All systems reviewed & are unremarkable except as noted in HPI and below Constitutional: Constitutional: Denies body ache(s), Denies chills, Denies excessive sweating, Denies fatigue, Denies fever(s), Denies headache(s), Denies lethargy, Denies malaise, Denies weakness and Denies weight loss Eyes: Eyes: Denies blurry vision, Denies change in vision and Denies loss of vision ENT: Denies dizziness, Denies ear discharge, Denies headache(s), Denies lip swelling, Denies epistaxis, Denies nasal congestion, Denies neck pain, Denies throat swelling and Denies tongue swelling Cardiovascular: Cardiovascular: Denies diaphoresis, Denies rapid heart rate, Denies edema, Denies irregular heart rhythm, Denies lightheadedness, Denies palpitations, Denies dyspnea and Denies dyspnea on exertion Respiratory: Respiratory: Denies chest congestion, Denies cough, Denies hemoptysis, Denies dyspnea and Denies dyspnea on exertion Gastrointestinal: Gastrointestinal: Denies melena, Denies hematochezia, Denies diarrhea, Denies nausea, Denies vomiting and Denies hematemesis Musculoskeletal: Musculoskeletal: Denies abnormal gait, Denies deformity, Denies joint swelling, Denies limited range of motion, Denies neck pain and Denies numbness Neurologic: Denies Abnormal speech present, Denies abnormal gait, Reports confusion, Denies dizziness, Denies headache(s), Denies focal weakness, Denies loss of vision, Denies numbness, Denies Other visual disturbances, Denies Sensory deficit (Neuro) and Denies weakness Psychiatric: Psychiatric: Reports confusion, Denies depression, Denies auditory hallucinations, Denies homicidal ideation and Denies suicidal ideation Endocrine: Endocrine: Denies cold intolerance, Denies excessive sweating, Denies fatigue, Denies heat intolerance and Denies palpitations Hematologic/Lymphatic: Hematologic/Lymphatic: Denies easy bleeding and Denies easy bruising Allergic/Immun
--- NOTE | 2020-07-03 11:39 | PC.NURSE ---
This patient, Remi Jefferson, was received from [ICU] on 07/03/20 at 1135. Patient/family oriented to unit policies and routines
--- NOTE | 2020-07-03 11:56 | PC.NURSE ---
This patient, Remi Jefferson, was transferred to [[facility] ] on 07/03/20 at 1130. Personal belongings sent with patient. Report given to [ [email or web address] [email or web address]]. Appropriate documentation sent with patient.Family notified.
--- NOTE | 2020-07-03 13:13 | PCOTNOTE ---
per nurse, pt is stable to continue occupational therapy services despite room change to ICU but has since moved back to 3rd med surge. No hold order placed. COVID results pending at this time.
[2020-07-03] MEDS: METOCLOPRAMIDE HCL INJ 10 MG/2 ML VIAL 5 MG IV PUSH (13:32)
[2020-07-03] MEDS: SODIUM CHLORIDE 0.9% IV 1,000 ML 75 ML IV CONT (21:18)
[2020-07-04] VITALS (7 sets, daily range): BP systolic 147–178; BP diastolic 83–99; PULSE 81–93; RESP 16–24; TEMP 36.3–36.9; O2SAT 91–100
[2020-07-04 06:17] LABS: Estimated CRCL calculation 60 ml/min; Estimated Glomerular Filt Rate > 60
[2020-07-04] MEDS: AMPICILLIN SULB 3 GM/NS 100 ML 3 GM/100 ML VIAL IVPB ×3 (06:34→20:06)
[2020-07-04] MEDS: hydrALAZINE HCL 20 MG/ML VIAL 10 MG IV PUSH (10:31)
--- NOTE | 2020-07-04 10:47 | PCSTNOTE ---
Please refer to the Bedside Swallow Evaluation in the EMR. Please note, silent aspiration cannot be ruled out at bedside.
[2020-07-04 11:10] LABS: Basophils Percent Auto 0.3 % (0.2-1.2); Eosinophils Absolute Auto 0.1 K/mm3 (0-0.3); Eosinophils Percent Auto 0.4 % (0-4.4); Hematocrit 28.7 % (42.0-52.0); Hemoglobin 8.8 g/dL (14.0-18.0); Immature Granulocyte Percent A 2.1 % (0-0.5); Lymphocytes Absolute Auto 0.51 K/mm3 (0.9-3.2); Lymphocytes Percent Auto 3.5 % (18.3-44.2); Mean Corpuscular HGB Conc 30.7 g/dl (32-36); Mean Corpuscular Hemoglobin 25.7 pg (26-34); Mean Corpuscular Volume 83.7 fl (80-100); Monocytes Absolute Auto 1.1 K/mm3 (0.1-0.6); Monocytes Percent Auto 7.3 % (2.6-8.5); Neutrophils Absolute Auto 12.5 K/mm3 (1.3-6.7); Neutrophils Percent Auto 86.4 % (45.5-73.1); Nucleated Red Blood Cells Perc 0.2 % (0.0-0.2); Platelet Count Result 518 k/mm3 (150-375); Red Blood Count 3.43 M/mm3 (4.6-6.20); Red Cell Distribution Width 21.2 % (11.5-14.5); White Blood Count 14.4 K/mm3 (4.5-10.0)
--- NOTE | 2020-07-04 11:15 | PM.IMPN ---
Progress Note: A&P Assessment and Plan (1) Acute respiratory failure with hypoxemia: Code(s): J96.01 - Acute respiratory failure with hypoxia Status: Acute Assessment and Plan: Overnight events noted Patient on supplemental oxygen (2) Aspiration pneumonia: Code(s): J69.0 - Pneumonitis due to inhalation of food and vomit Status: Acute Assessment and Plan: Started on Unasyn Await cultures Aspiration precautions Speech therapy evaluation for dysphagia WILL PLACE THE PATIENT ON LEVEL 5 AND LEVEL 2 DIET WHICH IS PUREED WITH MILDLY SEEING A THICKENED LIQUIDS (3) Acute GI bleeding: Code(s): K92.2 - Gastrointestinal hemorrhage, unspecified Status: Acute Assessment and Plan: holding oral anticoagulation awaiting GI recommendations supportive care continue to monitor status post 1 unit of packed red blood cells transfusion PATIENT HAD COLONOSCOPY RESULTS NOTED BOWEL REGIMEN STABLE (4) Abdominal pain: Qualifiers: Abdominal location: generalized Qualified Code(s): R10.84 - Generalized abdominal pain Code(s): R10.9 - Unspecified abdominal pain Status: Acute Assessment and Plan: continue PPI NO ABDOMINAL PAIN TODAY (5) Chronic anticoagulation: Code(s): Z79.01 - half-way (current) use of anticoagulants Status: Acute Assessment and Plan: holding due to GI bleed (6) Chest pain: Qualifiers: Chest pain type: unspecified Qualified Code(s): R07.9 - Chest pain, unspecified Code(s): R07.9 - Chest pain, unspecified Status: Acute Assessment and Plan: epigastric area continue to monitor PATIENT DENIES PAIN TODAY (7) Anemia: Qualifiers: Anemia type: unspecified type Qualified Code(s): D64.9 - Anemia, unspecified Code(s): D64.9 - Anemia, unspecified Status: Acute Assessment and Plan: likely secondary to GI bleed will continue to monitor transfuse as needed STABLE Subjective Date/time seen: 07/04/20 11:15 Review of Systems Review of Systems: ROS unobtainable: Yes 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) Exam Narrative: Exam Narrative: PATIENT IS LAYING IN bed Const: General: comfortable, no acute distress, well developed, confusion and other (asleep) Nutritional Appearance: thin Orientation/consciousness: oriented to person and confusion Limitations: no limitations Other: Frail HENMT: Head: normal to inspection, normocephalic and atraumatic Ears: hearing grossly normal bilaterally, TM normal on the right and TM normal on the left General nose exam: Normal external nose present, Normal nares present and No nasal discharge present Face and sinus: normal facial exam Mouth: Yes Normal oral and palatal mucosa present, Yes lip normal, Yes tongue normal and Yes oropharynx normal Throat: posterior oropharynx normal, tonsils normal and uvula midline Eyes: General: appearance normal, both eyes and all related structures Pupils: Equal, round and reactive pupils present EOM: EOMs intact bilaterally Neck: Neck: normal visual inspection, full ROM, no lymphadenopathy and no meningeal signs Chest: Chest palpation & inspection: normal inspection of the chest Resp: Effort & Inspection: normal respiratory effort, respiratory distress and tachypneic Auscultation: crackles bilateral at the base, rales, rhonchi, wheezes and diminished lung sounds Cardio: Rate: regular rate Rhythm: regular rhythm GI: Inspection: normal to inspection Auscultation: normal bowel sounds Rectal Exam: visual inspection normal and normal sphincter tone Other: Hemoccult positive : General: Yes no CVA tenderness Back/Spine/Pelvis: Back: no CVA tenderness Skin: General skin exam: normal color, no rashes or lesions noted, elasticity normal and turgor normal Neuro: General: oriented to person, tone normal, moves all extremities, Normal light touch and
[2020-07-04 11:22] LABS: Anion Gap 2 mmol/L (8-16); Blood Urea Nitrogen 13 mg/dL (9-20); Calcium 7.3 mg/dL (8.4-10.2); Carbon Dioxide 28 mmol/L (22-30); Chloride 112 mmol/L (98-107); Estimated CRCL calculation 60 ml/min; Estimated Glomerular Filt Rate > 60; Glucose 96 mg/dL (75-110); Potassium 3.3 mmol/L (3.4-5.0); Sodium 142 mmol/L (137-145)
[2020-07-04] MEDS: CARBIDOPA/LEVODOPA 12.5/50 MG TABLET 1 TABLET PO ×2 (11:55→17:32)
[2020-07-04] MEDS: SODIUM CHLORIDE 0.9% IV 1,000 ML 75 ML IV CONT (11:55)
[2020-07-04] MEDS: CARBIDOPA/LEVODOPA 25/100 MG TABLET 2 TABLET PO ×2 (11:56→17:32)
[2020-07-04 13:55] LABS: SARS-CoV-2 RNA PCR Negative
--- NOTE | 2020-07-04 14:12 | PCNFU ---
Nutrition Follow-Up Complete: Inadequate oral intake related to GI bleeding as evidenced by NPO status. Goal: Patient to meet estimated nutritional needs. Patient is progressing towards goal. We will continue current goal. Pt current nutrition is Minced and Moist, Level 5 with Mild Thick Liquids, Level 2. Last recorded weight is 56.2 kg, up from 50.6 kg. Bowel Motility:+BM reported 07/04. Labs Reviewed: K 3.3,Hct 28.7, Hgb 8.8 Meds Noted:Sinemet,Protonix, Vancomycin,NS Additional Notes:Nutrition follow up. Patient is COVID PUI. He had MBS today-recommending Minced and Moist, Level 5 and Mild Thick liquids, level 2. 50% of meal at lunch. MD orders for Ensure Enlive BID providing an additional 350 kcals and 20 gms protein. Diet supplement is at mildly thick consistency. Agree with diet orders. Monitoring: Follow up every 3 days.
--- NOTE | 2020-07-04 15:16 | WPDGIPROGNO ---
Progress Note: A&P Assessment and Plan (1) Sigmoid ulcer: Code(s): K63.3 - Ulcer of intestine Status: Acute Assessment and Plan: sigmoidoscopy found large ulcer with active inflammation of sigmoid (pending path report), this could have been from ischemia or previous fecal impaction supportive care (2) Fecal impaction: Code(s): K56.41 - Fecal impaction Status: Acute Assessment and Plan: continue with bowel regimen and avoid more impaction (3) Acute GI bleeding: Code(s): K92.2 - Gastrointestinal hemorrhage, unspecified Status: Acute Assessment and Plan: h/h low but stable now (4) Esophagitis: Code(s): K20.90 - Esophagitis, unspecified without bleeding Status: Acute (5) Hiatal hernia: Code(s): K44.9 - Diaphragmatic hernia without obstruction or gangrene Status: Acute Assessment and Plan: esophagitis with moderate size hiatal hernia, continue with aspiration precaution ppi (6) Aspiration pneumonia: Code(s): J69.0 - Pneumonitis due to inhalation of food and vomit Status: Acute Assessment and Plan: special diet for aspiration precaution Subjective Date/time seen: 07/04/20 15:16 Interval history: patient had episode of pneumonitis with possible aspiration during this weekend, now he is back in the floor and doing better. Review of Systems Review of Systems: All systems reviewed & are unremarkable except as noted in HPI and below Exam Const: Other: frail elderly, chronically ill appearing HENMT: General nose exam: Normal nares present Eyes: Pupils: Equal, round and reactive pupils present Neck: Neck: supple Resp: Auscultation: diminished lung sounds Cardio: Rate: regular rate GI: GI Palp: Yes Soft to palpation and No Tenderness to palpation present (GI) Auscultation: normal bowel sounds Skin: General skin exam: normal color Neuro: Cognition (Neuro): abnormal cognition Other: awake and alert but confused Extrem: General: normal to inspection Objective Data Vital Signs Vital Signs: Vital Signs - 24 hr 07/03/20 16:00 07/03/20 16:33 07/03/20 20:00 Temperature 98.2 F 99.0 F Pulse Rate 82 83 98 Respiratory Rate 20 20 20 Blood Pressure 152/93 H 146/94 H Pulse Oximetry 100 100 93 07/03/20 20:16 07/04/20 00:00 07/04/20 04:00 Temperature 98.5 F 98.2 F Pulse Rate 87 92 Respiratory Rate 20 20 Blood Pressure 157/95 H 151/99 H Pulse Oximetry 95 94 91 07/04/20 07:58 07/04/20 08:00 07/04/20 09:00 Temperature 98.2 F Pulse Rate 81 Respiratory Rate 20 Blood Pressure 169/93 H 178/83 H Pulse Oximetry 91 98 07/04/20 12:00 Temperature 97.3 F L Pulse Rate 92 Respiratory Rate 16 Blood Pressure 147/90 H Pulse Oximetry 97 Intake/Output Intake/Output: Intake & Output 07/01/20 07/02/20 07/03/20 07/04/20 23:59 23:59 23:59 23:59 Intake Total 2350 2770 3552 1450 Output Total 253 300 600 500 Balance 2097 2470 2952 950 Meds/Results Medications: Active Medications Generic Name Dose Route Start Last Admin Trade Name Freq PRN Reason Stop Dose Admin Acetaminophen 1,000 mg 06/30/20 15:08 06/30/20 16:46 Acetaminophen 500 Mg Tablet PO 1,000 mg Q6H PRN Administration Mild Pain (1-3) or Fever Albuterol 2 puff 06/30/20 07:43 Albuterol Sulfate (*Sp) Aerosol 1 Puff INHALATION Q6H PRN Shortness Of Breath Or Wheezing Bisacodyl 5 mg 07/01/20 13:34 Bisacodyl 5 Mg Tablet Ec PO QAM PRN Constipation Carbidopa/Levodopa 2 tablet 06/30/20 09:00 07/04/20 11:56 Carbidopa/Levodopa 25/100 Mg Tablet PO 2 tablet TID DEDRICK Administration Carbidopa/Levodopa 1 tablet 06/30/20 09:00 07/04/20 11:55 Carbidopa/Levodopa 12.5/50 Mg Tablet PO 1 tablet TID DEDRICK Administration Clobetasol Propionate 1 applic 06/30/20 07:43 Clobetasol Propionate 0.05 % Cream.30 Gm. TOPICAL DAILY PRN Wound Care Denosumab 60 mg 0
[2020-07-04] MEDS: ACETAMINOPHEN 500 MG TABLET 1000 MG PO (15:37)
[2020-07-04] MEDS: PANTOPRAZOLE 40 MG TABLET PO (17:32)
[2020-07-04] MEDS: QUEtiapine FUMARATE 25 MG TABLET PO (20:04)
[2020-07-05] MEDS: SODIUM CHLORIDE 0.9% IV 1,000 ML 75 ML IV CONT ×2 (04:08→20:09)
[2020-07-05] MEDS: AMPICILLIN SULB 3 GM/NS 100 ML 3 GM/100 ML VIAL IVPB ×3 (05:23→21:54)
[2020-07-05] MEDS: hydrALAZINE HCL 20 MG/ML VIAL 10 MG IV PUSH (05:45)
[2020-07-05 06:00] VITALS: BP 158/90; PULSE 93; RESP 18; TEMP 36.7; O2SAT 94
[2020-07-05 06:05] LABS: Hematocrit 25.9 % (42.0-52.0); Mean Corpuscular HGB Conc 30.9 g/dl (32-36); Mean Corpuscular Hemoglobin 26.2 pg (26-34); Mean Corpuscular Volume 84.9 fl (80-100); Mean Platelet Volume 9.2 fl (7.4-10.4); Platelet Count Result 465 k/mm3 (150-375); Red Blood Count 3.05 M/mm3 (4.6-6.20); Red Cell Distribution Width 20.9 % (11.5-14.5); White Blood Count 12.7 K/mm3 (4.5-10.0)
[2020-07-05 06:17] LABS: Anion Gap 3 mmol/L (8-16); Blood Urea Nitrogen 14 mg/dL (9-20); Calcium 7.7 mg/dL (8.4-10.2); Carbon Dioxide 28 mmol/L (22-30); Chloride 113 mmol/L (98-107); Estimated CRCL calculation 60 ml/min; Estimated Glomerular Filt Rate > 60; Glucose 109 mg/dL (75-110); Potassium 3.2 mmol/L (3.4-5.0); Sodium 144 mmol/L (137-145)
[2020-07-05 07:08] LABS: Vancomycin Trough 9.1 ug/mL (10.0-20.0)
[2020-07-05 08:00] VITALS: PULSE 93; RESP 20; O2SAT 94
--- NOTE | 2020-07-05 08:22 | PCOTNOTE ---
Attempted to see patient this AM for skilled OT session. Patient lying in bed, asleep, upon entry into room. Patient easily aroused by ALVARADO's introduction and call of name. Patient kept eyes closed for the duration of discussion of participation in therapy session. Patient refused participation multiple times this AM stating, Nope, I don't feel like it right now, hon. Will attempt to see patient for a second attempt this date if possible. Continue per Plan of Care.
[2020-07-05] MEDS: CARBIDOPA/LEVODOPA 25/100 MG TABLET 2 TABLET PO ×3 (08:35→16:31)
[2020-07-05] MEDS: CARBIDOPA/LEVODOPA 12.5/50 MG TABLET 1 TABLET PO ×3 (08:35→16:32)
[2020-07-05] MEDS: PANTOPRAZOLE 40 MG TABLET PO ×2 (08:35→16:32)
[2020-07-05] MEDS: ESCITALOPRAM OXALATE 10 MG TABLET PO (08:35)
[2020-07-05] MEDS: polyethylene glycoL 3350 17 GM POWD.PACK PO (08:36)
[2020-07-05 08:45] LABS: Monocytes Absolute Manual 0.76 K/mm3 (0.1-0.90); Monocytes Percent Manual 6 % (3-9); Neutrophils Percent Manual 90 % (46-73); Platelet Estimate Adequate (Adequate); Total Cells Counted 100
[2020-07-05 08:47] LABS: Acanthocytes 1+ (NORMAL); Hypochromasia 2+ (NORMAL); Poikilocytosis 1+ (NORMAL)
[2020-07-05 12:38] VITALS: PULSE 88; RESP 20; O2SAT 91
--- NOTE | 2020-07-05 13:21 | WPDGIPROGNO ---
Progress Note: A&P Assessment and Plan (1) Sigmoid ulcer: Code(s): K63.3 - Ulcer of intestine Status: Acute Assessment and Plan: sigmoidoscopy found large ulcer with active inflammation of sigmoid (path report consistent with ischemia) prevent more fecal impaction supportive care no more bleeding (anemia probably partially explained by findings of sigmoidoscopy and EGD) (2) Fecal impaction: Code(s): K56.41 - Fecal impaction Status: Acute Assessment and Plan: continue with bowel regimen (miralax and senna) and avoid more impaction (3) Acute GI bleeding: Code(s): K92.2 - Gastrointestinal hemorrhage, unspecified Status: Acute Assessment and Plan: h/h low but stable now (4) Esophagitis: Code(s): K20.90 - Esophagitis, unspecified without bleeding Status: Acute Assessment and Plan: biopsy reviewed ppi daily (5) Hiatal hernia: Code(s): K44.9 - Diaphragmatic hernia without obstruction or gangrene Status: Acute Assessment and Plan: esophagitis with moderate size hiatal hernia, continue with aspiration precaution ppi (6) Aspiration pneumonia: Code(s): J69.0 - Pneumonitis due to inhalation of food and vomit Status: Acute Assessment and Plan: special diet for aspiration precaution, on antibiotics slowly improving Subjective Date/time seen: 07/05/20 13:21 Interval history: family member at bedside, patient seems better, interacting, no report of GIB Review of Systems Review of Systems: All systems reviewed & are unremarkable except as noted in HPI and below Exam Const: Other: frail elderly, chronically ill appearing HENMT: General nose exam: Normal nares present Eyes: Pupils: Equal, round and reactive pupils present Neck: Neck: supple Resp: Auscultation: diminished lung sounds Cardio: Rate: regular rate GI: GI Palp: Yes Soft to palpation and No Tenderness to palpation present (GI) Auscultation: normal bowel sounds Skin: General skin exam: normal color Neuro: Cognition (Neuro): abnormal cognition Other: awake and alert but sometimes gets confused Extrem: General: normal to inspection Psych: Affect: No Hostile affect present Objective Data Vital Signs Vital Signs: Vital Signs - 24 hr 07/04/20 21:39 07/05/20 06:00 07/05/20 08:00 Temperature 97.7 F 98.1 F Pulse Rate 93 93 93 Respiratory Rate 24 H 18 20 Blood Pressure 153/96 H 158/90 H Pulse Oximetry 100 94 94 07/05/20 12:38 Temperature Pulse Rate 88 Respiratory Rate 20 Blood Pressure Pulse Oximetry 91 Intake/Output Intake/Output: Intake & Output 07/02/20 07/03/20 07/04/20 07/05/20 23:59 23:59 23:59 23:59 Intake Total 2770 3552 2160 1410 Output Total 033 312 3742 325 Balance 2470 2952 1135 1085 Meds/Results Medications: Active Medications Generic Name Dose Route Start Last Admin Trade Name Freq PRN Reason Stop Dose Admin Acetaminophen 1,000 mg 06/30/20 15:08 07/04/20 15:37 Acetaminophen 500 Mg Tablet PO 1,000 mg Q6H PRN Administration Mild Pain (1-3) or Fever Albuterol 2 puff 06/30/20 07:43 Albuterol Sulfate (*Sp) Aerosol 1 Puff INHALATION Q6H PRN Shortness Of Breath Or Wheezing Bisacodyl 5 mg 07/01/20 13:34 Bisacodyl 5 Mg Tablet Ec PO QAM PRN Constipation Carbidopa/Levodopa 2 tablet 06/30/20 09:00 07/05/20 12:31 Carbidopa/Levodopa 25/100 Mg Tablet PO 2 tablet TID DEDRICK Administration Carbidopa/Levodopa 1 tablet 06/30/20 09:00 07/05/20 12:31 Carbidopa/Levodopa 12.5/50 Mg Tablet PO 1 tablet TID DEDRICK Administration Clobetasol Propionate 1 applic 06/30/20 07:43 Clobetasol Propionate 0.05 % Cream.30 Gm. TOPICAL DAILY PRN Wound Care Denosumab 60 mg 09/04/20 09:00 Denosumab 60 Mg/Ml Syringe SUB-Q 09/04/20 09:01 ONCE ONE Escitalopram Oxalate 10 mg 06/30/20 09:00 07/05/20 08:35 Escitalopram Oxalate 10 M
--- NOTE | 2020-07-05 13:45 | PM.DS ---
DS: Admitting Diagnosis Admitting Diagnosis Admitting Diagnosis: DISCHARGE DATE 07/07/2020 DS: Discharge Diagnosis Discharge Diagnosis (1) Acute respiratory failure with hypoxemia: Code(s): J96.01 - Acute respiratory failure with hypoxia Status: Resolved Assessment and Plan: Pt appears stable on room air (2) Aspiration pneumonia: Code(s): J69.0 - Pneumonitis due to inhalation of food and vomit Status: Acute Assessment and Plan: Started on Unasyn and vancomycin. BC negative to date. Pt started with Unasyn on 07/02/2020 continued until 07/07/2020. Pt placed on Aspiration precautions. PT had Speech evaluation pt WILL PLACE THE PATIENT ON LEVEL 5 AND LEVEL 2 DIET WHICH IS PUREED WITH MILDLY SEEING [place] [id number] RPT swallow test at [place] and continue to feed. continue to monitor slow improvement. (3) Acute GI bleeding: Code(s): K92.2 - Gastrointestinal hemorrhage, unspecified Status: Acute Assessment and Plan: Holding oral anticoagulation for 7 days SP blood transfusion on 06/30. Pts hb is stable at 8. Pt not having any further GI bleeding. Sp EGD and colonscopy EGD shows- esophagitis, biospy reviwed by gi daily ppi. hiatal hernia. Colonoscopy shows- sigmoiditis, sigmoid ulcer and diverticulosis. (4) Abdominal pain: Qualifiers: Abdominal location: generalized Qualified Code(s): R10.84 - Generalized abdominal pain Code(s): R10.9 - Unspecified abdominal pain Status: Resolved Assessment and Plan: Continue PPI EGD shows- esophagitis, biospy reviwed by gi daily ppi. hiatal hernia. Colonoscopy shows- sigmoiditis, sigmoid ulcer and diverticulosis. (5) Chronic anticoagulation: Code(s): Z79.01 - [facility] (current) use of anticoagulants Status: Acute Assessment and Plan: Holding due to GI bleed, hold eliquis for 7 days after discharge. (6) Chest pain: Qualifiers: Chest pain type: unspecified Qualified Code(s): R07.9 - Chest pain, unspecified Code(s): R07.9 - Chest pain, unspecified Status: Resolved Assessment and Plan: Epigastric area more than chest EGD shows- esophagitis, biospy reviwed by gi daily ppi. hiatal hernia. (7) Anemia: Qualifiers: Anemia type: unspecified type Qualified Code(s): D64.9 - Anemia, unspecified Code(s): D64.9 - Anemia, unspecified Status: Resolved Assessment and Plan: Hb is 8, and it is stable pt sp 2 units of venofer and sp blood transfusion on 06/30 (8) Fecal impaction: Code(s): K56.41 - Fecal impaction Status: Resolved Assessment and Plan: Continue with senna to continue to prevent fecel impaction (9) Acute hypokalemia: Code(s): E87.6 - Hypokalemia Status: Acute Assessment and Plan: Continue to replace potassium with supplements and encourage to eat. DS: Summary Hospital Course Hospital Course: Frail elderly man admitted with epigastric pain, Pt found to have aspiration pneumonia improving and GI bleeding resolved. Awaiting discharge to [facility] for further rehab. Pt Hb is 8 today sp venofer due to have second dose today. Pt did have blood transfusion on 06/30. Stable otherwise no further Gi bleeding. Hemoccult is negative. Time Spent with Patient Time attestation: Total time spent providing and/or coordinating discharge services:40 minutes on day of dischrage Exam Narrative: Exam Narrative: Chronically tired and weak Const: General: comfortable and confusion Nutritional Appearance: thin Orientation/consciousness: oriented to person and confusion Limitations: no limitations Other: Frail, pleasantly confused HENMT: Head: normocephalic Face and sinus: normal facial exam Mouth: Yes Normal oral and palatal mucosa present, Yes lip normal, Yes tongue normal and Yes oropharynx normal Throat: posterior oropharynx normal, tonsils normal and
[2020-07-05 14:00] VITALS: BP 138/88; PULSE 75; RESP 18; TEMP 36.7; O2SAT 94
[2020-07-05 21:53] VITALS: BP 142/86; PULSE 84; RESP 20; TEMP 36.3; O2SAT 94
[2020-07-05] MEDS: QUEtiapine FUMARATE 25 MG TABLET PO (21:57)
[2020-07-05] MEDS: SENNA/DOCUSATE SODIUM TABLET 1 TAB PO (21:57)
[2020-07-05] MEDS: ACETAMINOPHEN 500 MG TABLET 1000 MG PO (23:03)
[2020-07-06 06:00] VITALS: BP 152/85; PULSE 92; RESP 20; TEMP 36.2; O2SAT 90
[2020-07-06 06:03] LABS: Basophils Percent Auto 0.4 % (0.2-1.2); Eosinophils Absolute Auto 0.2 K/mm3 (0-0.3); Eosinophils Percent Auto 2.7 % (0-4.4); Hematocrit 25.5 % (42.0-52.0); Hemoglobin 7.7 g/dL (14.0-18.0); Immature Granulocyte Absolute 0.33 K/mm3 (0.00-0.031); Immature Granulocyte Percent A 4.2 % (0-0.5); Lymphocytes Absolute Auto 0.61 K/mm3 (0.9-3.2); Lymphocytes Percent Auto 7.8 % (18.3-44.2); Mean Corpuscular HGB Conc 30.2 g/dl (32-36); Mean Corpuscular Hemoglobin 25.7 pg (26-34); Mean Platelet Volume 9.3 fl (7.4-10.4); Monocytes Absolute Auto 0.8 K/mm3 (0.1-0.6); Neutrophils Absolute Auto 5.9 K/mm3 (1.3-6.7); Neutrophils Percent Auto 74.9 % (45.5-73.1); Platelet Count Result 452 k/mm3 (150-375); Red Cell Distribution Width 20.9 % (11.5-14.5); White Blood Count 7.8 K/mm3 (4.5-10.0)
[2020-07-06 06:17] LABS: Anion Gap 4 mmol/L (8-16); Blood Urea Nitrogen 14 mg/dL (9-20); Calcium 8.1 mg/dL (8.4-10.2); Carbon Dioxide 27 mmol/L (22-30); Chloride 114 mmol/L (98-107); Estimated CRCL calculation 69 ml/min; Estimated Glomerular Filt Rate > 60; Glucose 94 mg/dL (75-110); Potassium 3.1 mmol/L (3.4-5.0); Sodium 145 mmol/L (137-145)
[2020-07-06] MEDS: AMPICILLIN SULB 3 GM/NS 100 ML 3 GM/100 ML VIAL IVPB ×3 (06:26→20:41)
--- NOTE | 2020-07-06 08:02 | PM.IMPN ---
Progress Note: A&P Assessment and Plan (1) Acute respiratory failure with hypoxemia: Code(s): J96.01 - Acute respiratory failure with hypoxia Status: Resolved Assessment and Plan: Pt appears stable on RA. (2) Aspiration pneumonia: Code(s): J69.0 - Pneumonitis due to inhalation of food and vomit Status: Acute Assessment and Plan: Started on Unasyn and vancomycin. BC negative to date. Pt started with Unasyn on 07/02/2020. 3 days ago may continue for another 2 days. Aspiration precautions Speech therapy evaluation for dysphagia WILL PLACE THE PATIENT ON LEVEL 5 AND LEVEL 2 DIET WHICH IS PUREED WITH MILDLY SEEING [place] [id number] Awaiting acceptance at [facility] (3) Acute GI bleeding: Code(s): K92.2 - Gastrointestinal hemorrhage, unspecified Status: Acute Assessment and Plan: Holding oral anticoagulation for 7 days SP blood transfusion on 06/30. Pts hb is stable at 8. Pt not having any further GI bleeding. Sp EGD and colonscopy EGD shows- esophagitis, biospy reviwed by gi daily ppi. hiatal hernia. Colonoscopy shows- sigmoiditis, sigmoid ulcer and diverticulosis. (4) Abdominal pain: Qualifiers: Abdominal location: generalized Qualified Code(s): R10.84 - Generalized abdominal pain Code(s): R10.9 - Unspecified abdominal pain Status: Resolved Assessment and Plan: Continue PPI (5) Chronic anticoagulation: Code(s): Z79.01 - USP (current) use of anticoagulants Status: Acute Assessment and Plan: Holding due to GI bleed, hold eliquis for 7 days after discharge. (6) Chest pain: Qualifiers: Chest pain type: unspecified Qualified Code(s): R07.9 - Chest pain, unspecified Code(s): R07.9 - Chest pain, unspecified Status: Resolved Assessment and Plan: Epigastric area more than chest (7) Anemia: Qualifiers: Anemia type: unspecified type Qualified Code(s): D64.9 - Anemia, unspecified Code(s): D64.9 - Anemia, unspecified Status: Resolved Assessment and Plan: Hb is 8, and it is stable (8) Fecal impaction: Code(s): K56.41 - Fecal impaction Status: Resolved Assessment and Plan: Miralax, senna to continue to prevent fecel impactation (9) Acute hypokalemia: Code(s): E87.6 - Hypokalemia Status: Acute Assessment and Plan: Continue to replace potassium with supplements Subjective Date/time seen: 07/05/20 08:02 Interval history: Frail elderly man admitted with epigastric pain, Pt found to have aspiration pneumonia improving and GI bleeding resolved. 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) Exam Narrative: Exam Narrative: Chronically tired and weak Const: General: comfortable and confusion Nutritional Appearance: thin Orientation/consciousness: oriented to person and confusion Limitations: no limitations Other: Frail, pleasantly confused Eyes: Pupils: Equal, round and reactive pupils present Neck: Neck: no meningeal signs Resp: Auscultation: diminished lung sounds Cardio: Rate: regular rate Rhythm: regular rhythm GI: Inspection: normal to inspection Auscultation: normal bowel sounds Rectal Exam: visual inspection normal and normal sphincter tone Skin: General skin exam: turgor normal Neuro: General: oriented to person, tone normal, moves all extremities, Normal light touch and pain sensation, no meningeal signs, no focal motor deficits, CN's II-XI intact bilaterally and confusion Cranial nerves: Yes Equal, round and reactive pupils present Speech: No Abnormal speech present Other: Extrem: General: normal to inspection Psych: Appearance: grossly normal and well kempt
[2020-07-06] MEDS: CARBIDOPA/LEVODOPA 25/100 MG TABLET 2 TABLET PO ×3 (08:24→17:25)
[2020-07-06] MEDS: ESCITALOPRAM OXALATE 10 MG TABLET PO (08:24)
[2020-07-06] MEDS: PANTOPRAZOLE 40 MG TABLET PO ×2 (08:24→17:25)
[2020-07-06] MEDS: CARBIDOPA/LEVODOPA 12.5/50 MG TABLET 1 TABLET PO ×3 (08:24→17:25)
[2020-07-06] MEDS: polyethylene glycoL 3350 17 GM POWD.PACK PO (08:25)
[2020-07-06] MEDS: ACETAMINOPHEN 500 MG TABLET 1000 MG PO (08:26)
--- NOTE | 2020-07-06 11:02 | PCOTNOTE ---
Attempted to see patient twice this date, however patient refused. Pt sleeping upon entering both attempts. Pt declined due to stomach pain. RN notified.
--- NOTE | 2020-07-06 13:13 | PM.IMPN ---
Progress Note: A&P Assessment and Plan (1) Acute respiratory failure with hypoxemia: Code(s): J96.01 - Acute respiratory failure with hypoxia Status: Resolved Assessment and Plan: Pt appears stable on RA. (2) Aspiration pneumonia: Code(s): J69.0 - Pneumonitis due to inhalation of food and vomit Status: Acute Assessment and Plan: Started on Unasyn and vancomycin. BC negative to date. Pt started with Unasyn on 07/02/2020. 3 days ago may continue for another 2 days. Aspiration precautions Speech therapy evaluation for dysphagia WILL PLACE THE PATIENT ON LEVEL 5 AND LEVEL 2 DIET WHICH IS PUREED WITH MILDLY SEEING A THICKENED LIQUIDS. WCC is [id number] Awaiting acceptance at [facility] (3) Acute GI bleeding: Code(s): K92.2 - Gastrointestinal hemorrhage, unspecified Status: Acute Assessment and Plan: Holding oral anticoagulation for 7 days SP blood transfusion on 06/30. Pts hb is stable at 8. Pt not having any further GI bleeding. Sp EGD and colonscopy EGD shows- esophagitis, biospy reviwed by gi daily ppi. hiatal hernia. Colonoscopy shows- sigmoiditis, sigmoid ulcer and diverticulosis. 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 (6) Chest pain: Qualifiers: Chest pain type: unspecified Qualified Code(s): R07.9 - Chest pain, unspecified Code(s): R07.9 - Chest pain, unspecified Status: Resolved Assessment and Plan: Epigastric area more than chest (7) Anemia: Qualifiers: Anemia type: unspecified type Qualified Code(s): D64.9 - Anemia, unspecified Code(s): D64.9 - Anemia, unspecified Status: Resolved Assessment and Plan: Hb is 7.7 likely after fluids pt has dropped slightly. can order Hemoccult and Venofer for 2 days. (8) Fecal impaction: Code(s): K56.41 - Fecal impaction Status: Resolved Assessment and Plan: Miralax, senna to continue to prevent fecel impactation (9) Acute hypokalemia: Code(s): E87.6 - Hypokalemia Status: Acute Assessment and Plan: Continue to replace potassium with supplements Subjective Date/time seen: 07/06/20 13:13 Interval history: Frail elderly man admitted with epigastric pain, Pt found to have aspiration pneumonia improving and GI bleeding resolved. Awaiting discharge to [facility] for further rehab. Pt Hb is 7.7 today lower cf with 8 yesterday, no further GI bleeding noticed, pt has been on fluids. Review of Systems Review of Systems: All systems reviewed & are unremarkable except as noted in HPI and below Exam Narrative: Exam Narrative: Chronically tired and weak Const: General: comfortable and confusion Nutritional Appearance: thin Orientation/consciousness: oriented to person and confusion Limitations: no limitations Other: Frail, pleasantly confused HENMT: Head: normocephalic Resp: Auscultation: diminished lung sounds Cardio: Rate: regular rate Rhythm: regular rhythm GI: Inspection: normal to inspection Auscultation: normal bowel sounds Rectal Exam: visual inspection normal and normal sphincter tone Skin: General skin exam: turgor normal Neuro: General: oriented to person, tone normal, moves all extremities, Normal light touch and pain sensation, no meningeal signs, no focal motor deficits, CN's II-XI intact bilaterally and confusion Cranial nerves: Yes Equal, round and reactive pupils present Speech: No Abnormal speech present Sensory Exam: No Sensory deficit (Neuro) Other: Extre
[2020-07-06 14:00] VITALS: BP 140/81; PULSE 72; RESP 20; TEMP 36.6; O2SAT 94
[2020-07-06] MEDS: IRON SUCROSE COMPLEX 100 MG in SODIUM CHLORIDE 0.9% IV 50 ML 220 MG IVPB (15:24)
[2020-07-06] MEDS: SENNA/DOCUSATE SODIUM TABLET 1 TAB PO (20:22)
[2020-07-06] MEDS: QUEtiapine FUMARATE 25 MG TABLET PO (20:22)
[2020-07-06 22:00] VITALS: BP 150/91; PULSE 84; RESP 20; TEMP 36.5; O2SAT 92
[2020-07-06 22:42] LABS: IFOB Positive Control Positive; Immunochemical Fecal Occult Bl Negative (N)
[2020-07-07 06:00] VITALS: BP 144/89; PULSE 81; RESP 20; TEMP 36.6; O2SAT 92
[2020-07-07] MEDS: AMPICILLIN SULB 3 GM/NS 100 ML 3 GM/100 ML VIAL IVPB ×3 (06:00→20:28)
[2020-07-07 06:14] LABS: Hematocrit 26.4 % (42.0-52.0); Mean Corpuscular HGB Conc 30.3 g/dl (32-36); Mean Corpuscular Hemoglobin 25.6 pg (26-34); Mean Corpuscular Volume 84.6 fl (80-100); Mean Platelet Volume 9.4 fl (7.4-10.4); Platelet Count Result 485 k/mm3 (150-375); Red Blood Count 3.12 M/mm3 (4.6-6.20); Red Cell Distribution Width 20.8 % (11.5-14.5); White Blood Count 7.2 K/mm3 (4.5-10.0)
[2020-07-07 06:23] LABS: Anion Gap 3 mmol/L (8-16); Blood Urea Nitrogen 13 mg/dL (9-20); Calcium 8.3 mg/dL (8.4-10.2); Carbon Dioxide 29 mmol/L (22-30); Chloride 113 mmol/L (98-107); Estimated CRCL calculation 60 ml/min; Estimated Glomerular Filt Rate > 60; Glucose 86 mg/dL (75-110); Potassium 3.4 mmol/L (3.4-5.0); Sodium 145 mmol/L (137-145)
[2020-07-07] MEDS: ESCITALOPRAM OXALATE 10 MG TABLET PO (09:11)
[2020-07-07] MEDS: CARBIDOPA/LEVODOPA 25/100 MG TABLET 2 TABLET PO ×3 (09:11→17:23)
[2020-07-07] MEDS: polyethylene glycoL 3350 17 GM POWD.PACK PO (09:11)
[2020-07-07] MEDS: CARBIDOPA/LEVODOPA 12.5/50 MG TABLET 1 TABLET PO ×3 (09:11→17:23)
[2020-07-07] MEDS: PANTOPRAZOLE 40 MG TABLET PO ×2 (09:11→17:23)
[2020-07-07 10:11] VITALS: O2SAT 90
--- NOTE | 2020-07-07 13:15 | PM.IMPN ---
Progress Note: A&P Assessment and Plan (1) Acute respiratory failure with hypoxemia: Code(s): J96.01 - Acute respiratory failure with hypoxia Status: Resolved Assessment and Plan: Pt appears stable on RA. (2) Aspiration pneumonia: Code(s): J69.0 - Pneumonitis due to inhalation of food and vomit Status: Acute Assessment and Plan: Started on Unasyn and vancomycin. BC negative to date. Pt started with Unasyn on 07/02/2020. Can be completed tomorrow. Aspiration precautions Speech therapy evaluation for dysphagia WILL PLACE THE PATIENT ON LEVEL 5 AND LEVEL 2 DIET WHICH IS PUREED WITH MILDLY SEEING A THICKENED LIQUIDS. WCC is [id number] Awaiting acceptance at [facility] (3) Acute GI bleeding: Code(s): K92.2 - Gastrointestinal hemorrhage, unspecified Status: Acute Assessment and Plan: Holding oral anticoagulation for 7 days SP blood transfusion on 06/30. Pts hb is stable at 8. Pt not having any further GI bleeding. Sp EGD and colonscopy EGD shows- esophagitis, biospy reviwed by gi daily ppi. hiatal hernia. Colonoscopy shows- sigmoiditis, sigmoid ulcer and diverticulosis. Pt to have 2 units of venofer second dose today. (4) Abdominal pain: Qualifiers: Abdominal location: generalized Qualified Code(s): R10.84 - Generalized abdominal pain Code(s): R10.9 - Unspecified abdominal pain Status: Resolved Assessment and Plan: Continue PPI (5) Chronic anticoagulation: Code(s): Z79.01 - longterm (current) use of anticoagulants Status: Acute Assessment and Plan: Holding due to GI bleed, hold eliquis for 7 days after discharge. (6) Chest pain: Qualifiers: Chest pain type: unspecified Qualified Code(s): R07.9 - Chest pain, unspecified Code(s): R07.9 - Chest pain, unspecified Status: Resolved Assessment and Plan: Epigastric area more than chest (7) Anemia: Qualifiers: Anemia type: unspecified type Qualified Code(s): D64.9 - Anemia, unspecified Code(s): D64.9 - Anemia, unspecified Status: Resolved Assessment and Plan: Hb is 8 can order one unit of Venofer (8) Fecal impaction: Code(s): K56.41 - Fecal impaction Status: Resolved Assessment and Plan: Miralax, senna to continue to prevent fecel impactation (9) Acute hypokalemia: Code(s): E87.6 - Hypokalemia Status: Acute Assessment and Plan: Continue to replace potassium with supplements Subjective Date/time seen: 07/07/20 13:15 Interval history: Frail elderly man admitted with epigastric pain, Pt found to have aspiration pneumonia improving and GI bleeding resolved. Awaiting discharge to [facility] for further rehab. Pt Hb is 8 today sp venofer due to have second dose today. Stable otherwise no further Gi bleeding Hemoccult is negative. Review of Systems Review of Systems: All systems reviewed & are unremarkable except as noted in HPI and below Exam Narrative: Exam Narrative: Chronically tired and weak Const: General: comfortable and confusion Nutritional Appearance: thin Orientation/consciousness: oriented to person and confusion Limitations: no limitations Other: Frail, pleasantly confused HENMT: Head: normocephalic Face and sinus: normal facial exam Mouth: Yes Normal oral and palatal mucosa present, Yes lip normal, Yes tongue normal and Yes oropharynx normal Throat: posterior oropharynx normal, tonsils normal and uvula midline Eyes: General: appearance normal, both eyes and all related structures Pupils: Equal, round and reactive pupils present EOM: EOMs intact bilaterally Neck: Neck: normal visual inspection, full ROM, no lymphadenopathy and no meningeal signs Chest: Chest palpation & inspection: normal inspection of the chest Resp: Effort & Inspection: other (mild wheezes BL ) Auscultation: diminished lung sounds Cardio: Rate: reg
[2020-07-07] MEDS: ACETAMINOPHEN 500 MG TABLET 1000 MG PO (13:33)
[2020-07-07 14:00] VITALS: BP 146/91; PULSE 83; RESP 18; TEMP 36.6; O2SAT 90
--- NOTE | 2020-07-07 14:13 | PCNFU ---
Nutrition Follow-Up Complete: Inadequate oral intake related to GI bleeding as evidenced by NPO status. Goal: Patient to meet estimated nutritional needs. Progressing towards goal. We will continue current goal. Pt current nutrition is Minced and Moist, Level 5 and Mildly Thick liquids, Level 2. Last recorded weight is 56.2 kg, up from 50.6kg. Bowel Motility:+BM reported /5 Labs Reviewed:K 3.3,Hct 28.7,Hgb 8.8 Meds Noted:Lexapro,Proventil,Unasyn,Sinemet,Protonix,Seroquel. Additional Notes: Nutrition follow up. Patient refused to get in chair or eat breakfast this morning. Lunch: 25% of meal. Overall intake has improved: 50-60% of meals. Patient is also receiving Ensure Enlive BID providing an additional 350 kcals and 20 gms protein. Agree with diet orders. Monitoring: Follow up every 5 days.
[2020-07-07] MEDS: IRON SUCROSE COMPLEX 100 MG in SODIUM CHLORIDE 0.9% IV 50 ML 220 MG IVPB (14:34)
[2020-07-07] MEDS: SENNA/DOCUSATE SODIUM TABLET 1 TAB PO (20:28)
[2020-07-07] MEDS: QUEtiapine FUMARATE 25 MG TABLET PO (20:28)
== END 2020-07-07 21:45 | disposition swing bed (61) | DRG 368 ==
LOC: ANHED 05:00 → ANHIMU 06:00 → ANH3MEDSUR 07-01 12:14 → ANHIMU 07-01 12:14 → ANH3MEDSUR 07-02 09:36 → ANHICU 07-03 00:20 → ANH3MEDSUR 07-04 05:26 → ANHICU 07-11 11:06
PROVIDERS: Internal Medicine; Internal Medicine Gastroenterology; Admitting Provider Family Medicine; Emergency Provider Emergency Medicine; PCP Internal Medicine; Visit Provider Family Medicine
PROC: 0DJ08ZZ Inspection of Upper Intestinal Tract, Via Natural or Artificial Opening Endoscopic (ICD-10-PCS; CPT 43235; principal; 2020-07-01 12:15)
PROC: 0DJD8ZZ Inspection of Lower Intestinal Tract, Via Natural or Artificial Opening Endoscopic (ICD-10-PCS; CPT 45330; 2020-07-01 12:15)
DX: K20.91 Esophagitis, unspecified with bleeding (principal); J69.0 Pneumonitis due to inhalation of food and vomit; J96.01 Acute respiratory failure with hypoxia; F05 Delirium due to known physiological condition; K63.3 Ulcer of intestine; Z20.822 Contact with and (suspected) exposure to COVID-19; G20 Parkinson's disease; K44.9 Diaphragmatic hernia without obstruction or gangrene; K29.70 Gastritis, unspecified, without bleeding; K52.9 Noninfective gastroenteritis and colitis, unspecified; K57.30 Diverticulosis of large intestine without perforation or abscess without bleeding; D50.0 Iron deficiency anemia secondary to blood loss (chronic); K56.41 Fecal impaction; R10.84 Generalized abdominal pain; I71.4 Abdominal aortic aneurysm, without rupture; J43.9 Emphysema, unspecified; F17.290 Nicotine dependence, other tobacco product, uncomplicated; I48.91 Unspecified atrial fibrillation; E87.6 Hypokalemia; Z66 Do not resuscitate; Z79.01 Long term (current) use of anticoagulants; Z79.899 Other long term (current) drug therapy; Z85.01 Personal history of malignant neoplasm of esophagus
CPT/HCPCS: 36415; 36430; 36600; 70450; 71045; 71046; 71260; 74018; 74176; 74177; 80048; 80053; 80202; 81001; 82274; 82375; 82565; 82805; 82948; 83050; 83605; 83690; 84484; 85025; 85027; 85610; 85730; 86850; 86900; 86901; 86923; 87040; 88305; 92610; 93005; 96361; 96374; 97110; 97116; 97162; 97165; 97530; 97535; 99285; A9270; C9113; C9803; G0378; J0295; J0360; J1756; J2704; J2765; J3370; J7030; J7120; P9016; Q9967; U0003; U0005